=== PATIENT | female | born 1960 | race Caucasian/White ===

== ENCOUNTER 2022-09-13 12:18 | Emergency (ER) | payer OTHER, SELFPAY ==
[2022-09-13 12:44] VITALS: BP 118/77; PULSE 76; RESP 20; TEMP 36.2; O2SAT 98; BMI 34.4
--- NOTE | 2022-09-13 12:47 | ED_ITS ---
HPI - Skin/Abscess/Foreign Bdy General Chief complaint: Skin/Abscess/Foreign Body Stated complaint: Cyst on feet Time Seen by Provider: 09/13/22 13:00 Source: patient and family (Daughter) Mode of arrival: ambulatory Limitations: language barrier (English-speaking) History of Present Illness HPI narrative: 61yoF who is English-speaking presenting to the ER with her daughter at bedside with complaints of painful black corey that started on her right foot that is now spreading to her left foot. Reports that she never walks barefooted. Her daughter's concerns at is a possible parasite. Although apparently the patient was at a [facility] and they told her was most likely ?corns?. This is with the daughter reports. She denies any other symptoms complaints or concerns at this time. complaint: lesion Onset (ago): day(s) (3-4 days ago) Location: L foot and R foot Severity: mild Quality: aching and constant Pain Consistency: constant Relieving factors: none Exacerbating factors: palpation (and walking) Context: none Associated symptoms: denies other symptoms Treatments prior to arrival: none Related Data Previous Rx's Medication Instructions Recorded salicylic acid 40 % topical patch 1 appl topical Q48H corns on feet 09/13/22 (Closplint Remover) #36 ea Allergies Allergy/AdvReac Type Severity Reaction Status Date / Time aspirin Allergy Difficulty Verified 09/13/22 12:47 Breathing Penicillins Allergy Difficulty Verified 09/13/22 12:47 Breathing Review of Systems Review of Systems: Constitutional : No Weight loss, No Fever, No Chills, No Night Sweats, No Fatigue, No Malaise ENT/Mouth : No Hearing loss, No Ear Pain, No Nasal Congestion, No Sinus Pain, No Hoarseness, No sore throat, No Rhinorrhea, No Swallowing Difficulty Eyes: No Eye Pain, No Swelling, No Redness, No Foreign Body, No Discharge, No Vision Changes Cardiovascular : No Chest Pain, No SOB, No Dyspnea on Exertion, No Orthopnea, No Edema, No Palpitations Respiratory : No Cough, No Sputum, No Wheezing, No Smoke Exposure, No Dyspnea Gastrointestinal : No Nausea, No Vomiting, No Diarrhea, No Constipation, No abdominal Pain, No Hematochezia, No Melena Genitourinary : no irregular bleeding, No Dysuria, No Urinary Frequency, No Hematuria, No Urinary Incontinence, No Urgency, No Flank Pain, No Urinary Flow Changes, No Hesitancy Musculoskeletal : No joint pain, No Myalgias, No Joint Swelling Skin : + Skin Lesions, No rash Neuro : No Weakness, No Numbness, No Paresthesias, No Loss of Consciousness, No Dizziness, No Headache Psych : No Anxiety/Panic, No Depression, No SI/HI/AH/VH, No Social Issues, Heme/Lymph: No Bruising, No Bleeding,No Lymphadenopathy Endocrine : No Polyuria, No Polydipsia, No Temperature Intolerance Yes all other systems are reviewed and are negative [facility] Past Medical History Attestation statement: The following information was validated with the patient. Source: old records reviewed, obtained from family and nursing notes reviewed Social History Social History Advance Directives: No Advance Directives Information Provided: Yes Physical Exam Vital Signs: Vital Signs: Last Vital Signs Temp 97.1 F 09/13/22 12:44 Pulse 76 09/13/22 12:44 Resp 20 09/13/22 12:44 BP 118/77 09/13/22 12:44 Pulse Ox 98 09/13/22 12:44 O2 Del Method 09/13/22 12:44 BMI result Body Mass Index 34.4 vital signs have been reviewed as normal and appeared to be correct. Blood pressure normal Heart rate normal. Respiration rate normal. Temperature normal. Oxygen saturation normal. Appearance: Alert. Oriented X3. No acute distress. Head: Normal external exam. Normocephalic. Atraumatic. Eyes: PERRLA. EOMI. Conjunctiva and sclera normal. Eyelids normal. ENT: Pharynx normal. Uvula midline. Moist mucous membranes. Neck: Normal inspection. Neck supple. FROM. CVS: Normal heart rate and rhythm. Respiratory: No respiratory distress. Painless inspiration. Skin: Skin warm and dry. Normal skin color. Normal skin turgor. Patient noted to have approximately 2-3 small painful black dots to bilateral soles of the feet consistent with a possible corn. Not consistent with foreign body or cellulitis no streaking is noted purulent drainage. No addition rashes/lesions/lacerations noted. Extremities: No lower extremity edema. No calf tenderness is noted. Extremities exhibit normal range of motion. Extremities nontender. Neuro: Oriented X 3. No motor deficit. No sensory deficit. Reflexes normal. Normal steady gait. No focal neuro deficits noted. Vascular: + radial pulses/+ 2 distal pedal pulses/+2 dorsalis pedis b/l. Normal cap refill. No cyanosis noted to upper extremity nails and lower extremity toes nails. Course Course Course Narrative: [id number] 61yoF who is English-speaking presenting to the ER with her daughter at bedside with complaints of painful black corey that started on her right foot that is now spreading to her left foot. Reports that she never walks barefooted. Her daughter's concerns at is a possible parasite. Although apparently the patient was at a [facility] and they told her was most likely ?corns?. This is with the daughter reports. She denies any other symptoms complaints or concerns at this time. On exam patient most likely corns. No signs of infection. Therefore at this time will DC home with corn patches and referral to podiatry with instructions return if any new or worsening symptoms. Patient with daughter at bedside understand agree this plan. Medical Decision Making Independent Historian Clinical information obtained from an independent historian. History obtained from or confirmed by: Other (Daughter at bedside) Prescription Management I considered prescription management with: Other (Core Treatment and referral to smoke chaser) Discharge Plan Discharge Clinical Impression: Closplint of foot Patient Disposition: Home, Self-Care Prescriptions: New Closplint Remover 40 % adhesive patch,medicated 1 appl topical Q48H Qty: 36 0RF Referrals: Abdulaziz Mike [Physician] - 1 week Print Language: English
--- OUTSIDE RECORDS SUMMARY | 2022-09-13 13:09 | XMS_ITS | Continuity of Care Document ---
:1960 Author Organization [facility] Address [address] [place] [address]- Care Team Providers Name Role Phone Roberto Medina DO Primary Care Physician [facility] Date[facility]): 08/05/22 - 09/04/22 [facility] [address] [place] [id number] Allergies, Adverse Reactions, Alerts Substance Reaction Severity Status penicillin Active Child ASA Active Immunizations Given and Recorded Vaccine Date Status Refusal Reason SARS-CoV-2 (COVID-19) mRNA BNT-162b2 vac 07/02/21 Given influenza virus vaccine, inactivated 07/02/21 Given influenza virus vaccine, inactivated 05/21/19 Given influenza virus vaccine, inactivated 06/15/18 Given influenza virus vaccine, inactivated 06/13/16 Given SARS-CoV-2 (COVID-19) mRNA-1273 vaccine 12/07/20 Recorded SARS-CoV-2 (COVID-19) mRNA-1273 vaccine 11/09/20 Recorded pneumococcal 23-valent vaccine 05/21/19 Given tetanus/diphtheria/pertussis, acel(Tdap) 06/13/16 Given Medications albuterol CFC free 90 mcg/inh inhalation aerosol 2, puffs, Inhalation, 4 times a day, PRN, Nepalese, # 3 each, Refills 1, Tot. Refills 1, Maintenance,10/08/19 15:32:00 EDT, Route to Pharmacy Electronically, [id number], [facility], 156, cm, 07/14/19 13:44:00... Start Date: 10/08/19 Stop Date: 9/9/20 Status: Orderedarm sling, M75.4 arm sling, M75.4, See Instructions, # 1 each, Refills 0, Tot. Refills 0, Maintenance, arm sling M75.4, 06/11/19 9:07:54 EST, Compound Start Date: 06/11/19 Status: Orderedatorvastatin 40 mg oral tablet 1 tablet = 40 mg, By Mouth, Daily at bedtime, # 30 tablet, 11 Refills, Maintenance, 06/03/21 13:50:00 EST, Tablet, [facility] 156, cm, 03/05/21 8:16:00 EDT, Height Start Date: 06/03/21 Status: OrderedBED SUPPORT BAR BED SUPPORT BAR, See Instructions, # 1 each, Refills 0, Tot. Refills 0, Maintenance, DX: DIASTOLIC DYSFUNCTION,DIZZINESS, OBESITY, IMPAIRED MOBILITY RISK FOR FALLS 151.9 E66.9,Z79.81,Z74.09,R42 DURATION LIFETIME HT 156 CM WT 91.22 KG, 05/19/19 9:00... Start Date: 05/19/19 Status: OrderedCane See Instructions, # 1 each, Refills 0, Tot. Refills 0, Maintenance, DX BACK PAIN ,IMPAIRED MOBILITY M45.5 Z74.09 HT 156 CM WT 88.9 KG DURATION - LIFETIME, 08/09/20 16:47:00 EST, Supply Start Date: 08/09/20 Status: Orderedcelecoxib 100 mg oral capsule 1 capsule = 100 mg, By Mouth, 2 times a day, turkmen. Pt allergic to cox1 inhib, cox2 trial provided, # 20 capsule, 1 Refills, Maintenance, 02/01/21 15:46:00 EDT, Capsule, [facility] 156, cm, 02/01/21 15:03:00 EDT, Height Start Date: 02/01/21 Stop Date: 02/21/21 Status: Ordereddiclofenac 1% topical gel See Instructions, APLICAR A LA PIEL AL AREA AFECTADA 1-2 GRAMOS CUATRO VECES AL BELIA PARA DOLOR, # 100 Gm, 1 Refills, 10/11/21 9:31:00 EDT, [facility] 25, APLICAR A LA PIEL AL AREA AFECTADA 1-2 GRAMOS CUATRO VECES AL BELIA PARA DOLOR, 15... Start Date: 10/11/21 Status: CebggtkL-E-Nhj 4.9% oral suspension See Instructions, to be used for CT scan, # 1 each, 0 Refills, Maintenance, 04/15/22 18:22:00 EDT, Partial fill upon patient request if the prescription is for a schedule II opioid drug. Start Date: 04/15/22 Status: OrderedFreestyle Lite Lancets See Instructions, # 100 each, Refills 3, Tot. Refills 3, Maintenance, dx dm type 2 check bs 1 x per day e11.9, 12/05/20 16:57:00 EDT, Compound, 156, cm, 02/23/20 11:34:00 EDT, Height Start Date: 12/05/20 Status: OrderedFREESTYLE LITE METER Device FREESTYLE LITE METER Device, See Instructions, # 1 Unknown, 0 Refills, Maintenance, USAR VERONICA INDICADO PARA CHEQUEAR LA AZUCAR DE LA DANYELL CADA BELIA, 156, cm, 02/23/20 11:34:00 EDT, Height Start Date: 01/03/21 Status: OrderedFreestyle lite monitor Freestyle lite monitor, See Instructions, # 1 each, Refills 0, Tot. Refills 0, Maintenance, Check Blood sugar 1 per day. Type 2 diabetes (E11.9), 12/05/20 16:47:00 EDT, Compound, 156, cm, 02/23/20 11:34:00 EDT, Height Start Date: 12/05/20 Status: OrderedFreestyle Lite Test Strips See Instructions, # 100 each, Refills 3, Tot. Refills 3, Maintenance, dx dm type 2 check bs 1 x per day e11.9, 12/05/20 16:57:00 EDT, Compound, 156, cm, 02/23/20 11:34:00 EDT, Height Start Date: 12/05/20 Status: Orderedlevothyroxine 0.05 mg oral tablet = 50 mcg, By Mouth, Daily, # 90 each, 3 Refills, Maintenance, 02/08/22 19:49:00 EDT, Tablet, [facility], 156, cm, 12/31/21 13:56:00 EDT, Height Start Date: 02/08/22 Stop Date: 02/03/23 Status: Orderedlidocaine 5% topical ointment See Instructions, Topically 3 times a day for pain. Nepalese label please., # 50 Gm, 0 Refills, Maintenance, 02/01/21 15:46:00 EDT, [facility], Partial fill upon patient request if the prescription is for a schedule II opioid drug., To... Start Date: 02/01/21 Status: Orderedlisinopril 20 mg oral tablet See Instructions, AALIYAH 1 TABLETA POR LA BOCA CADA BELIA, # 30 tablet, Refills 5, Tot. Refills 5, 04/15/22 10:21:00 EDT, Instructions Replace Required Details, Route to Pharmacy Electronically, [facility], 156, cm, 03/27/22 15:07:00 EDT,... Start Date: 04/15/22 Status: OrderedMetFORMIN (Eqv-Glucophage XR) 500 mg oral tablet, extended release See Instructions, AALIYAH 2 TABLETAS POR LA BOCA DOS VECES AL BELIA., # 120 tablet, 5 Refills, Maintenance, 08/28/22 11:41:00 EST, [facility], cm, 04/15/22 17:44:00 EDT, Height Start Date: 08/28/22 Status: Orderednicotine 2 mg oral transmucosal lozenge 1 lozenge = 2 mg, By Mouth, Every 2 hours, # 81 lozenge, 0 Refills, Maintenance, 05/21/19 8:29:57 EDT, 1 lozenge By Mouth Every 2 hours Start Date: 05/21/19 Status: Orderedpair of atrex diabetic shoes pair of atrex diabetic shoes, See Instructions, # 2 each, Refills 0, Tot. Refills 0, Maintenance, E11.9, D11.40 duration: lifetime, 03/05/21 10:59:00 EDT, Supply Start Date: 03/05/21 Status: Orderedpantoprazole 40 mg oral delayed release tablet 1 tablet = 40 mg, By Mouth, Daily, # 30 tablet, 5 Refills, Maintenance, 03/20/22 13:46:00 EDT, EC Tablet, 156, cm, 03/20/22 13:10:00 EDT, Height Start Date: 03/20/22 Stop Date: 09/16/22 Status: OrderedPEG-3350 with Electrolytes (Eqv-NuLYTELY) oral powder for reconstitution See Instructions, Please follow instructions from GI; NOT the instructions in the package insert., #1 kit, 0 Refills, Maintenance, 03/27/22 15:25:00 EDT, [facility] Okay to substitutewith any gallon bowel prep., Please follow instru... Start Date: 03/27/22 Status: Orderedplastazote shoe inserts plastazote shoe inserts, See Instructions, # 2 each, Refills 0, Tot. Refills 0, Maintenance, Dx codes E11.9, E11.40 duration: lifetime, 03/05/21 12:12:00 EDT, Supply Start Date: 03/05/21 Status: OrderedReadi-Cat 2 oral suspension 450 mL = 9 Gm, By Mouth, 2 times a day, Please dispense two 450 mL bottles for a total dose that equals 900 mLs. Drink first bottle [address] and then drink second bottle [address] scan, #2 each, 0 Refills, Maintenance, 05/20/22 15:03:00... Start Date: 05/20/22 Status: OrderedsitaGLIPtin 50 mg oral tablet 1 tablet = 50 mg, By Mouth, Daily, turkmen, # 90 tablet, 1 Refills, Maintenance, 10/08/19 15:32:00 EDT, Tablet, [facility], 156, cm, 07/14/19 13:44:00 EST, Height Start Date: 10/08/19 Stop Date: 04/05/20 Status: OrderedtiZANidine 2 mg oral capsule 1 capsule = 2 mg, By Mouth, 3 times a day, PRN as needed for muscle spasm, # 9 capsule, 0 Refills, Maintenance, 10/11/21 9:30:00 EDT, Capsule, [facility], Partial fill upon patient request if the prescription is for a schedule II opioi... Start Date: 10/11/21 Stop Date: 10/14/21 Status: OrderedTUB BENCH TUB BENCH, See Instructions, # 1 each, Refills 0, Tot. Refills 0, Maintenance, DX: DIASTOLIC DYSFUNCTION,DIZZINESS, OBESITY, IMPAIRED MOBILITY RISK FOR FALLS 151.9 E66.9,Z79.81,Z74.09,R42 DURATION LIFETIME HT 156 CM WT 91.22 KG, 05/19/19 8:58:06 ED... Start Date: 05/19/19 Status: OrderedTylenol Extra Strength 500 mg oral tablet 2 tablet = 1,000 mg, By Mouth, 3 times a day, PRN Pain , Moderate, # 120 tablet, 1 Refills, Maintenance, 04/15/22 18:32:00 EDT, Tablet, [facility], Nepalese Label, 156, cm, 04/15/22 17:44:00 EDT, Height Start Date: 04/15/22 Status: Ordered Problem List Condition Confirmation Course Effective Dates Status Health I nformant Status Diabetes mellitus Confirmed Active Diastolic dysfunction Confirmed Active HLD (hyperlipidemia) Confirmed Active HTN (hypertension) Confirmed Active Hypothyroidism Confirmed Active Obese class II Confirmed Active Obesity Confirmed Active *Kourtney Pinzon, Confirmed Active [employer], [facility] [phone] Tobacco dependence Confirmed Active Social History Social History Type Response Smoking Status Current every day smoker; Ty pe: Cigarettes entered on: 07/04/15 Sex Female Patient Care team information Care Team PersonnelName: Roberto Medina DO Position: S Resident Member Role: PCP Address: Address: [address] [place] [address] [place] [address]- Care Team Related PersonsName: KISHAN JARAMILLO Address: [place] [address]
--- OUTSIDE RECORDS SUMMARY | 2022-09-13 13:09 | XMS_ITS | Continuity of Care Document ---
:1960 Author Organization [address] [address]- Care Team Providers Name Role Phone Roberto Medina DO Primary Care Physician [facility] Date[facility]s): 11/21/21 - 12/21/[address] Attending Physician: AdmVineet mendes Admitting Physician: AdmtrVineet Referring Physician: Admtr, Ar8 Allergies, Adverse Reactions, Alerts Substance Reaction Severity [...] puffs, Inhalation, 4 times a day, PRN, Gambian, # 3 each, Refills 1, Tot. Refills 1, Maintenance,10/08/19 15:32:00 EDT, Route to Pharmacy Electronically, [id number], [facility], 156, , 07/14/19 13:44:00... Start Date: 10/08/19 Stop Date: 04/05/20 Status: Orderedarm sling, M75.4 arm sling, M75.4, See Instructions, # 1 each, Refills 0, Tot. Refills 0, Maintenance, arm sling M75.4, 06/11/19 9:07:54 EST, Compound Start Date: 06/11/19 Status: Orderedatorvastatin 40 mg oral tablet 1 tablet = 40 mg, By Mouth, Daily at bedtime, # 30 tablet, 11 Refills, Maintenance, 06/03/21 13:50:00 EST, Tablet, [facility] 156, cm, 03/05/21 8:16:00 EDT, Height Start [...] mg, By Mouth, 2 times a day, senegalese. Pt allergic to cox1 inhib, cox2 trial provided, # 20 capsule, 1 Refills, Maintenance, 02/01/21 15:46:00 EDT, Capsule, [facility] 156, cm, 02/01/21 15:03:00 EDT, Height Start Date: 02/01/21 Stop Date: 02/21/21 Status: Ordereddiclofenac 1% topical gel See Instructions, APLICAR A LA PIEL AL AREA AFECTADA 1-2 GRAMOS CUATRO VECES AL BELIA PARA DOLOR, # 100 Gm, 1 Refills, 10/11/21 9:31:00 EDT, [facility] 25, APLICAR A LA PIEL AL AREA AFECTADA 1-2 GRAMOS CUATRO VECES AL BELIA PARA DOLOR, 15... Start Date: 10/11/21 Status: OrderedFreestyle Lite Lancets See Instructions, # [...] mcg, By Mouth, Daily, # 90 each, 4 Refills, Maintenance, 12/08/20 8:45:00 EDT, [facility], cm, 02/23/20 11:34:00 EDT, Height Start Date: 12/08/20 Stop Date: 03/03/22 Status: Orderedlidocaine 5% topical ointment See Instructions, Topically 3 times a day for pain. Gambian label please., # 50 Gm, 0 Refills, Maintenance, 02/01/21 15:46:00 EDT, [facility], Partial fill upon patient request if the prescription is for a schedule II opioid drug., To... Start Date: 02/01/21 Status: Orderedlisinopril 20 mg oral tablet See Instructions, AALIYAH 1 TABLETA POR LA BOCA CADA BELIA, # 30 tablet, Refills 5, Instructions ReplaceRequired Details, Route to Pharmacy Electronically, [facility], 156, cm, 10/11/21 9:38:00 EDT, Height Start Date: 10/23/21 Status: OrderedmetFORMIN 500 mg oral tablet, extended release 2 tablet = 1,000 mg, By Mouth, 2 times a day, # 120 tablet, 5 Refills, Maintenance, 11/01/21 10:04:00 EDT, [facility], 156, cm, 10/11/21 9:38:00 EDT, Height Start Date: 11/01/21 Status: Orderednicotine 2 mg oral transmucosal lozenge [...] 10:59:00 EDT, Supply Start Date: 03/05/21 Status: Orderedplastazote shoe inserts plastazote shoe inserts, See Instructions, # 2 each, Refills 0, Tot. Refills 0, Maintenance, Dx codes E11.9, E11.40 duration: lifetime, 03/05/21 12:12:00 EDT, Supply Start Date: 03/05/21 Status: OrderedsitaGLIPtin 50 mg oral tablet 1 tablet = 50 mg, By Mouth, Daily, senegalese, # 90 tablet, 1 Refills, Maintenance, 10/08/19 15:32:00 EDT, Tablet, [facility], cm, 07/14/19 13:44:00 EST, Height Start Date: 10/08/19 Stop Date: 04/05/20 Status: OrderedtiZANidine 2 mg oral capsule 1 capsule = 2 mg, By Mouth, 3 times a day, PRN as needed for muscle spasm, # 9 capsule, 0 Refills, Maintenance, 10/11/21 9:30:00 EDT, Capsule, [facility] Partial fill upon patient request if the [...] Moderate, # 120 tablet, 1 Refills, Maintenance, 12/05/20 11:43:00 EDT, Tablet, [facility] Gambian Label, 156, cm, 02/23/20 11:34:00 EDT, Height Start Date: 12/05/20 Status: Ordered Problem List Condition Effective Dates Status Health Status Informant Diabetes mellitus(Confirmed) Active Diastolic dysfunction(Confirmed) Active HLD (hyperlipidemia)(Confirmed) Active HTN (hypertension)(Confirmed) Active Hypothyroidism(Confirmed) Active Obese class II(Confirmed) Active Obesity(Confirmed) Active *Kourtney Pinzon, Cold Type Artist, Active [employer] [phone](Confirmed) Tobacco dependence(Confirmed) Active Social History Social History Type Response Smoking Status Current every day smoker; Ty pe: Cigarettes entered on: 07/04/15 Sex Female
--- OUTSIDE RECORDS SUMMARY | 2022-09-13 13:09 | XMS_ITS | Continuity of Care Document ---
:1960 Author Organization [facility] Address [address] [place] [id number]- Care Team Providers Name Role Phone Roberto Medina DO Primary Care Physician [facility]): [facility] - 07/31/22 [facility] [address] [place] [id number] Attending Physician: Not on Staff, Attending MD Allergies, Adverse Reactions, Alerts Substance Reaction Severity [...] puffs, Inhalation, 4 times a day, PRN, Kuwaiti, # 3 each, Refills 1, Tot. Refills 1, Maintenance,10/08/19 15:32:00 EDT, Route to Pharmacy Electronically, [id number], [facility], 156, cm, 07/14/19 13:44:00... Start Date: [...] 11 Refills, Maintenance, 06/03/21 13:50:00 EST, Tablet, [facility] 156, cm, 03/05/21 8:16:00 EDT, Height Start [...] mg, By Mouth, 2 times a day, greenlandic. Pt allergic to cox1 inhib, cox2 trial provided, # 20 capsule, 1 Refills, Maintenance, 02/01/21 15:46:00 EDT, Capsule, [facility] 156, cm, 02/01/21 15:03:00 EDT, Height Start Date: 02/01/21 Stop Date: 02/21/21 Status: Ordereddiclofenac 1% topical gel See Instructions, APLICAR A LA PIEL AL AREA AFECTADA 1-2 GRAMOS CUATRO VECES AL BELIA PARA DOLOR, # 100 Gm, 1 Refills, 10/11/21 9:31:00 EDT, [facility]., 25, APLICAR A LA PIEL AL AREA AFECTADA 1-2 GRAMOS CUATRO VECES AL BELIA PARA DOLOR, 15... Start Date: 10/11/21 Status: FojbsmpE-I-Eip 4.9% oral suspension See Instructions, to be [...] 3 Refills, Maintenance, 02/08/22 19:49:00 EDT, Tablet, [facility], 156, cm, 12/31/21 13:56:00 EDT, Height Start Date: 02/08/22 Stop Date: 02/03/23 Status: Orderedlidocaine 5% topical ointment See Instructions, Topically 3 times a day for pain. Kuwaiti label please., # 50 Gm, 0 Refills, Maintenance, 02/01/21 15:46:00 EDT, [facility], Partial fill upon patient request if the prescription is for a schedule II opioid drug., To... Start Date: 02/01/21 Status: Orderedlisinopril 20 mg oral tablet See Instructions, AALIYAH 1 TABLETA POR LA BOCA CADA BELIA, # 30 tablet, Refills 5, Tot. Refills 5, 04/15/22 10:21:00 EDT, Instructions Replace Required Details, Route to Pharmacy Electronically, [facility], 156, cm, 03/27/22 15:07:00 EDT,... Start Date: 04/15/22 Status: OrderedmetFORMIN 500 mg oral tablet, extended release 2 tablet = 1,000 mg, By Mouth, 2 times a day, # 120 tablet, 5 Refills, Maintenance, 11/01/21 10:04:00 EDT, [facility], 156, cm, 10/11/21 9:38:00 EDT, Height Start [...] kit, 0 Refills, Maintenance, 03/27/22 15:25:00 EDT, [facility]., Okay to substitutewith any gallon bowel prep., [...] tablet = 50 mg, By Mouth, Daily, greenlandic, # 90 tablet, 1 Refills, Maintenance, 10/08/19 15:32:00 EDT, Tablet, [facility], 156, cm, 07/14/19 13:44:00 EST, Height Start Date: 10/08/19 Stop Date: 04/05/20 Status: OrderedtiZANidine 2 mg oral capsule 1 capsule = 2 mg, By Mouth, 3 times a day, PRN as needed for muscle spasm, # 9 capsule, 0 Refills, Maintenance, 10/11/21 9:30:00 EDT, Capsule, [facility], Partial fill upon patient request if [...] 1 Refills, Maintenance, 04/15/22 18:32:00 EDT, Tablet, [facility], Kuwaiti Label, 156, cm, 04/15/22 17:44:00 EDT, Height Start Date: 04/15/22 Status: Ordered Problem List Condition Confirmation Course Effective Dates Status Health I nformant Status Diabetes mellitus Confirmed Active Diastolic dysfunction Confirmed Active HLD (hyperlipidemia) Confirmed Active HTN (hypertension) Confirmed Active Hypothyroidism Confirmed Active Obese class II Confirmed Active Obesity Confirmed Active *Kourtney Pinzon, Confirmed Active [employer], [facility] [phone] Tobacco dependence Confirmed Active Social History Social History Type Response Smoking Status Current every day smoker; Ty pe: Cigarettes entered on: 07/04/15 Sex Female Patient Care team information Care Team PersonnelName: Roberto Medina DO Position: S Resident Member Role: PCP Address: Address: [address] [place] [address] [place] [address]- Care Team Related PersonsName: KISHAN JARAMILLO Address: [place] [address]
--- OUTSIDE RECORDS SUMMARY | 2022-09-13 13:09 | XMS_ITS | Continuity of Care Document ---
:1960 Author Organization [facility] Address [address] [place] [address]- Care Team Providers Name Role Phone Jonathan Bermudez MD Primary Care Physician [facility] 08[facility]27/19 - 09/06/19 [facility] [address] [place] [address]- [facility] Attending Physician: Vineet Alexis Admitting Physician: Vineet Alexis Referring Physician: AdmtrVineet Allergies, Adverse Reactions, Alerts Substance Reaction Severity Status penicillin Active Child ASA Active Immunizations Given and Recorded Vaccine Date Status Refusal Reason pneumococcal 23-valent vaccine 05/21/19 Given influenza virus vaccine, inactivated 05/21/19 Given influenza virus vaccine, inactivated 06/15/18 Given influenza virus vaccine, inactivated 06/13/16 Given tetanus/diphtheria/pertussis, acel(Tdap) 06/13/16 Given Medications albuterol CFC free 90 mcg/inh inhalation aerosol 2, puffs, Inhalation, 4 times a day, PRN, Persian, # 1 each, Refills 2, Tot. Refills 2, Maintenance,05/21/19 8:31:13 EDT, Route to Pharmacy Electronically, [id number][facility] Start Date: 05/21/19 Status: Orderedarm sling, M75.4 arm sling, M75.4, See Instructions, # 1 each, Refills 0, Tot. Refills 0, Maintenance, arm sling M75.4, 06/11/19 9:07:54 EST, Compound Start Date: 06/11/19 Status: Orderedatorvastatin 40 mg oral tablet 1 tablet = 40 mg, By Mouth, Daily at bedtime, # 30 tablet, 11 Refills, Maintenance, 03/09/19 10:49:19 EDT, Tablet Start Date: 03/09/19 Stop Date: 03/03/20 Status: OrderedBED SUPPORT BAR BED SUPPORT BAR, See Instructions, # 1 each, Refills 0, Tot. Refills 0, Maintenance, DX: DIASTOLIC DYSFUNCTION,DIZZINESS, OBESITY, IMPAIRED MOBILITY RISK FOR FALLS 151.9 E66.9,Z79.81,Z74.09,R42 DURATION LIFETIME HT 156 CM WT 91.22 KG, 05/19/19 9:00... Start Date: 05/19/19 Status: OrderedFreestyle Lite Lancets See Instructions, # 50 each, Refills 11, Tot. Refills 11, Maintenance, dx dm type 2 check bs 1 x perday e11.9, 18 17:46:37 EST, Compound Start Date: 06/26/18 Status: OrderedFreestyle lite monitor Freestyle lite monitor, See Instructions, # 1 each, Refills 0, Tot. Refills 0, Maintenance, Check Blood sugar 1 per day. Type 2 diabetes (E11.9), 12/23/18 17:47:16 EDT, Compound Start Date: 12/23/18 Status: OrderedFreestyle Lite Test Strips See Instructions, # 50 each, Refills 11, Tot. Refills 11, Maintenance, dx dm type 2 check bs 1 x perday e11.9, 06/26/18 17:45:39 EST, Compound Start Date: 06/26/18 Status: Orderedlevothyroxine 0.05 mg oral tablet = 50 mcg, By Mouth, Daily, # 30 each, 11 Refills, Maintenance, 03/09/19 10:49:18 EDT, Tablet Start Date: 03/09/19 Stop Date: 03/03/20 Status: Orderedlisinopril 10 mg oral tablet 10 mg, By Mouth, Daily, # 30 tablet, Refills 11, Tot. Refills 11, Maintenance, 03/09/19 10:49:17 EDT, Route to Pharmacy Electronically, [id number], [facility] Start Date: 03/09/19 Stop Date: 03/03/20 Status: OrderedmetFORMIN 500 mg oral tablet, extended release 2 tablet = 1,000 mg, By Mouth, 2 times a day, # 120 tablet, 11 Refills, Maintenance, 03/09/19 10:49:19 EDT Start Date: 03/09/19 Status: Orderednicotine 2 mg oral transmucosal lozenge 1 lozenge = 2 mg, By Mouth, Every 2 hours, # 81 lozenge, 0 Refills, Maintenance, 05/21/19 8:29:57 EDT, 1 lozenge By Mouth Every 2 hours Start Date: 05/21/19 Status: OrderedsitaGLIPtin 50 mg oral tablet 1 tablet = 50 mg, By Mouth, Daily, albanian, # 90 tablet, 3 Refills, Maintenance, 05/21/19 8:23:51 EDT, Tablet Start Date: 05/21/19 Stop Date: 05/15/20 Status: OrderedTUB BENCH TUB BENCH, See Instructions, # 1 each, Refills 0, Tot. Refills 0, Maintenance, DX: DIASTOLIC DYSFUNCTION,DIZZINESS, OBESITY, IMPAIRED MOBILITY RISK FOR FALLS 151.9 E66.9,Z79.81,Z74.09,R42 DURATION LIFETIME HT 156 CM WT 91.22 KG, 05/19/19 8:58:06 ED... Start Date: 05/19/19 Status: OrderedTylenol Extra Strength 500 mg oral tablet 2 tablet = 1,000 mg, By Mouth, Every 6 hours, PRN for pain, Persian label, # 100 tablet, 1 Refills, Maintenance, 05/21/19 8:30:57 EDT, Tablet Start Date: 05/21/19 Status: Ordered Problem List Condition Effective Dates Status Health Status Informant Diabetes mellitus(Confirmed) Active Diastolic dysfunction(Confirmed) Active HLD (hyperlipidemia)(Confirmed) Active HTN (hypertension)(Confirmed) Active Hypothyroidism(Confirmed) Active Obesity(Confirmed) Active Tobacco dependence(Confirmed) Active Social History Social History Type Response Smoking Status Current every day smoker; Ty pe: Cigarettes entered on: 07/04/15 Sex Female
--- OUTSIDE RECORDS SUMMARY | 2022-09-13 13:09 | XMS_ITS | Continuity of Care Document ---
:[address] [facility] Address [address] [place] [address]- Care Team Providers Name Role Phone Jonathan Bermudez MD Primary Care Physician [facility] 10/12/19 - 10/19/19 [facility] [address] [place] [address]- [facility] Attending Physician: Ban Ferrera MD Admitting Physician: Joe CUBA, Zeke Jacob Allergies, Adverse Reactions, Alerts Substance Reaction Severity [...] puffs, Inhalation, 4 times a day, PRN, Guinean, # 3 each, Refills 1, Tot. Refills 1, Maintenance,10/08/19 15:32:00 EDT, Route to Pharmacy Electronically, [id number], [facility], 156, cm, 07/14/19 13:44:00... Start Date: 10/08/19 Stop Date: 04/05/20 Status: Orderedarm sling, M75.4 arm sling, M75.4, See Instructions, # 1 each, Refills 0, Tot. Refills 0, Maintenance, arm sling M75.4, 06/11/19 9:07:54 EST, Compound Start Date: 06/11/19 Status: Orderedatorvastatin 40 mg oral tablet 1 tablet = 40 mg, By Mouth, Daily at bedtime, # 90 tablet, 1 Refills, Maintenance, 10/08/19 15:32:00EDT, Tablet, [facility], 156, cm, 07/14/19 13:44:00 EST, Height Start Date: 10/08/19 Stop Date: 04/05/20 Status: OrderedBED SUPPORT BAR BED SUPPORT BAR, See Instructions, # 1 each, Refills 0, Tot. Refills 0, Maintenance, DX: DIASTOLIC DYSFUNCTION,DIZZINESS, OBESITY, IMPAIRED MOBILITY RISK FOR FALLS 151.9 E66.9,Z79.81,Z74.09,R42 DURATION LIFETIME HT 156 CM WT 91.22 KG, 05/19/19 9:00... Start Date: 05/19/19 Status: OrderedFreestyle Lite Lancets See Instructions, # 100 each, Refills 1, Tot. Refills 1, Maintenance, dx dm type 2 check bs 1 x per day e11.9, 10/08/19 15:35:00 EDT, Compound, 156, cm, 07/14/19 13:44:00 EST, Height Start Date: 10/08/19 Status: OrderedFreestyle lite monitor Freestyle lite monitor, See Instructions, # 1 each, Refills 0, Tot. Refills 0, Maintenance, Check Blood sugar 1 per day. Type 2 diabetes (E11.9), 12/23/18 17:47:16 EDT, Compound Start Date: 12/23/18 Status: OrderedFreestyle Lite Test Strips See Instructions, # 100 each, Refills 1, Tot. Refills 1, Maintenance, dx dm type 2 check bs 1 x per day e11.9, 10/08/19 15:35:00 EDT, Compound, 156, cm, 07/14/19 13:44:00 EST, Height Start Date: 10/08/19 Status: Orderedlevothyroxine 0.05 mg oral tablet = 50 mcg, By Mouth, Daily, # 90 each, 1 Refills, Maintenance, 10/08/19 15:32:00 EDT, Tablet, [facility], 156, cm, 07/14/19 13:44:00 EST, Height Start Date: 10/08/19 Stop Date: 04/05/20 Status: Orderedlisinopril 10 mg oral tablet 10 mg, By Mouth, Daily, # 90 each, Refills 1, Tot. Refills 1, Maintenance, 10/08/19 15:32:00 EDT, Route to Pharmacy Electronically, [facility], 156, cm, 07/14/19 13:44:00 EST, Height Start Date: 10/08/19 Stop Date: 04/05/20 Status: OrderedmetFORMIN 500 mg oral tablet, extended release 2 tablet = 1,000 mg, By Mouth, 2 times a day, # 120 tablet, 11 Refills, Maintenance, 10/08/19 15:32:00 EDT, [facility], 156, cm, 07/14/19 13:44:00 EST, Height Start Date: 10/08/19 Status: Orderednicotine 2 mg oral transmucosal lozenge 1 lozenge = 2 mg, By Mouth, Every 2 hours, # 81 lozenge, 0 Refills, Maintenance, 05/21/19 8:29:57 EDT, 1 lozenge By Mouth Every 2 hours Start Date: 05/21/19 Status: OrderedsitaGLIPtin 50 mg oral tablet 1 tablet = 50 mg, By Mouth, Daily, maltese, # 90 tablet, 1 Refills, Maintenance, 10/08/19 15:32:00 EDT, Tablet, [facility], 156, cm, 07/14/19 13:44:00 EST, Height Start Date: 10/08/19 Stop Date: 04/05/20 Status: OrderedTUB BENCH TUB BENCH, See Instructions, # 1 each, Refills 0, Tot. Refills 0, Maintenance, DX: DIASTOLIC DYSFUNCTION,DIZZINESS, OBESITY, IMPAIRED MOBILITY RISK FOR FALLS 151.9 E66.9,Z79.81,Z74.09,R42 DURATION LIFETIME HT 156 CM WT 91.22 KG, 05/19/19 8:58:06 ED... Start Date: 05/19/19 Status: OrderedTylenol Extra Strength 500 mg oral tablet 2 tablet = 1,000 mg, By Mouth, Every 6 hours, PRN for pain, Guinean label, # 100 tablet, 1 Refills, Maintenance, [...]
--- OUTSIDE RECORDS SUMMARY | 2022-09-13 13:09 | XMS_ITS | Continuity of Care Document ---
:1960 Author Organization [facility] Address [address] [place] [address]- Care Team Providers Name Role Phone Jonathan Bermudez MD Primary Care Physician [facility] 07/22/19 - 08/01/19 [facility] [address] [place] [address]- [facility] Attending Physician: Vineet Alexis Admitting Physician: [...] puffs, Inhalation, 4 times a day, PRN, Jamaican, # 1 each, Refills 2, Tot. Refills 2, Maintenance,05/21/19 8:31:13 EDT, Route to Pharmacy Electronically, [id number], [facility] Start Date: 05/21/19 Status: Orderedarm sling, [...] 03/09/19 10:49:17 EDT, Route to Pharmacy Electronically, [id number], [facility] Start Date: 03/09/19 Stop Date: 03/03/20 [...] tablet = 50 mg, By Mouth, Daily, bahraini, # 90 tablet, 3 Refills, Maintenance, 05/21/19 [...] Mouth, Every 6 hours, PRN for pain, Jamaican label, # 100 tablet, 1 Refills, Maintenance, [...]
--- OUTSIDE RECORDS SUMMARY | 2022-09-13 13:09 | XMS_ITS | Continuity of Care Document ---
:1960 Author Organization [facility] Address [address] [place] [address]- Care Team Providers Name Role Phone Roberto Medina DO Primary Care Physician [facility] 07/13/21 - 09/06/21 [facility] [address] [place] [address]- Attending Physician: Not on Staff, Attending MD [...] puffs, Inhalation, 4 times a day, PRN, Ukrainian, # 3 each, Refills 1, Tot. Refills 1, Maintenance,10/08/19 15:32:00 EDT, Route to Pharmacy Electronically, [id number], [facility], 156, cm, 07/14/19 13:44:00... Start Date: [...] 11 Refills, Maintenance, 06/03/21 13:50:00 EST, Tablet, [facility]., 156, cm, 03/05/21 8:16:00 EDT, Height [...] mg, By Mouth, 2 times a day, peruvian. Pt allergic to cox1 inhib, cox2 trial provided, # 20 capsule, 1 Refills, Maintenance, 02/01/21 15:46:00 EDT, Capsule, [facility] 156, cm, 02/01/21 15:03:00 EDT, Height Start Date: 02/01/21 Stop Date: 02/21/21 Status: Ordereddiclofenac 1% topical gel See Instructions, APLICAR A LA PIEL AL AREA AFECTADA 1-2 GRAMOS CUATRO VECES AL BELIA PARA DOLOR, # 100 Gm, 1 Refills, 06/11/21 16:19:00 EST, [facility] 25, APLICAR A LA PIEL AL AREA AFECTADA 1-2 GRAMOS CUATRO VECES AL BELIA PARA DOLOR, 1... Start Date: 06/11/21 Status: OrderedFreestyle Lite Lancets See Instructions, # [...] 4 Refills, Maintenance, 12/08/20 8:45:00 EDT, Tablet, [facility] 156, cm, 02/23/20 11:34:00 EDT, Height Start Date: 12/08/20 Stop Date: 03/03/22 Status: Orderedlidocaine 5% topical ointment See Instructions, Topically 3 times a day for pain. Ukrainian label please., # 50 Gm, 0 Refills, Maintenance, 02/01/21 15:46:00 EDT, [facility], Partial fill upon patient request if the prescription is for a schedule II opioid drug., To... Start Date: 02/01/21 Status: Orderedlisinopril 20 mg oral tablet See Instructions, AALIYAH 1 TABLETA POR LA BOCA CADA BELIA, # 30 tablet, Refills 5, Maintenance, Instructions Replace Required Details, Route to Pharmacy Electronically, [facility], 156, cm, 03/05/21 8:16:00 EDT, Height Start Date: 03/08/21 Status: OrderedmetFORMIN 500 mg oral tablet, extended release 2 tablet = 1,000 mg, By Mouth, 2 times a day, # 120 tablet, 5 Refills, Maintenance, 03/06/21 9:03:00EDT, [facility], 156, cm, 03/05/21 8:16:00 EDT, Height Start Date: 03/06/21 Status: Orderednicotine 2 mg oral transmucosal lozenge [...] tablet = 50 mg, By Mouth, Daily, peruvian, # 90 tablet, 1 Refills, Maintenance, 10/08/19 15:32:00 EDT, Tablet, [facility] 156, cm, 07/14/19 13:44:00 EST, [...] 1 Refills, Maintenance, 12/05/20 11:43:00 EDT, Tablet, [facility] Ukrainian Label, 156, cm, 02/23/20 11:34:00 EDT, Height Start Date: 12/05/20 Status: Ordered Problem List Condition Effective Dates Status Health Status Informant Diabetes mellitus(Confirmed) Active Diastolic dysfunction(Confirmed) Active HLD (hyperlipidemia)(Confirmed) Active HTN (hypertension)(Confirmed) Active Hypothyroidism(Confirmed) Active Obese class II(Confirmed) Active Obesity(Confirmed) Active *Kourtney Pinzon, Church Supervisor, Active [facility] [phone](Confirmed) Tobacco dependence(Confirmed) Active Social History Social History Type Response Smoking Status Current every day smoker; Ty pe: Cigarettes entered on: 07/04/15 Sex Female
--- OUTSIDE RECORDS SUMMARY | 2022-09-13 13:09 | XMS_ITS | Continuity of Care Document ---
:1960 Author Organization [facility] Address [address] [place] [address]- Care Team Providers Name Role Phone Roberto Medina DO Primary Care Physician [facility] 03[facility]27/20 - 04/26/20 [facility] [address] [place] [address]- [place] Allergies, Adverse Reactions, Alerts Substance Reaction Severity [...] Maintenance,10/08/19 15:32:00 EDT, Route to Pharmacy Electronically, [id number], [facility], cm, 07/14/19 13:44:00... Start Date: 10/08/19 Stop Date: 04/05/20 Status: Orderedarm sling, M75.4 arm sling, M75.4, See Instructions, # 1 each, Refills 0, Tot. Refills 0, Maintenance, arm sling M75.4, 06/11/19 9:07:54 EST, Compound Start Date: 06/11/19 Status: Orderedatorvastatin 40 mg oral tablet 1 tablet = 40 mg, By Mouth, Daily at bedtime, # 90 tablet, 1 Refills, Maintenance, 11/18/19 15:46:00EDT, Tablet, [facility]., 156, cm, 07/14/19 13:44:00 EST, Height Start Date: 11/18/19 Stop Date: 05/16/20 Status: OrderedBED SUPPORT BAR BED SUPPORT BAR, See Instructions, # 1 each, Refills 0, Tot. Refills 0, Maintenance, DX: DIASTOLIC DYSFUNCTION,DIZZINESS, OBESITY, IMPAIRED MOBILITY RISK FOR FALLS 151.9 E66.9,Z79.81,Z74.09,R42 DURATION LIFETIME HT 156 CM WT 91.22 KG, 05/19/19 9:00... Start Date: 05/19/19 Status: Ordereddiclofenac 1% topical gel 1 application, Topically, 4 times a day, # 100 Gm, 0 Refills, Maintenance, 02/23/20 11:43:00 EDT, Gel, [facility], 156, cm, 02/23/20 11:34:00 EDT, Height Start Date: 02/23/20 Status: OrderedFreestyle Lite Lancets See Instructions, # [...] Daily, # 90 each, 1 Refills, Maintenance, 11/18/19 15:46:00 EDT, Tablet, [facility], 156, cm, 07/14/19 13:44:00 EST, Height Start Date: 11/18/19 Stop Date: 05/16/20 Status: Orderedlisinopril 20 mg oral tablet 20 mg, 1, tablet, By Mouth, Daily, # 90 tablet, Refills 0, Tot. Refills 0, Maintenance, 02/23/20 12:10:00 EDT, Route to Pharmacy Electronically, [facility], 156, cm, 02/23/20 11:34:00 EDT, Height Start Date: 02/23/20 Status: OrderedmetFORMIN 500 mg oral tablet, extended release 2 tablet = 1,000 mg, By Mouth, 2 times a day, # 120 tablet, 11 Refills, Maintenance, 10/08/19 15:32:00 EDT, [facility], 156, cm, 07/14/19 13:44:00 EST, Height Start Date: 10/08/19 Status: Orderednicotine 2 mg oral transmucosal lozenge 1 lozenge = 2 mg, By Mouth, Every 2 hours, # 81 lozenge, 0 Refills, Maintenance, 05/21/19 8:29:57 EDT, 1 lozenge By Mouth Every 2 hours Start Date: 05/21/19 Status: OrderedsitaGLIPtin 50 mg oral tablet 1 tablet = 50 mg, By Mouth, Daily, anguillan, # 90 tablet, 1 Refills, Maintenance, 10/08/19 15:32:00 EDT, Tablet, [facility], 156, cm, 07/14/19 13:44:00 EST, Height Start [...] PRN Pain , Moderate, # 120 tablet, 0 Refills, Maintenance, 02/23/20 12:11:00 EDT, Tablet, [facility] 156, cm, 02/23/20 11:34:00 EDT, Height Start Date: 02/23/20 Status: Ordered Problem List Condition Effective Dates Status Health Status Informant Diabetes mellitus(Confirmed) Active Diastolic dysfunction(Confirmed) Active HLD (hyperlipidemia)(Confirmed) Active HTN (hypertension)(Confirmed) Active Hypothyroidism(Confirmed) Active Obesity(Confirmed) Active Tobacco dependence(Confirmed) Active Social History Social History Type Response Smoking Status Current every day smoker; Ty pe: Cigarettes entered on: 07/04/15 Sex Female
--- OUTSIDE RECORDS SUMMARY | 2022-09-13 13:09 | XMS_ITS | Continuity of Care Document ---
:[address] [facility] Address [address] [place] [address]- Care Team Providers Name Role Phone Roberto Medina DO Primary Care Physician [facility] Date[facility]s): 09[facility]/20 - 10/04/20 [facility] [address] [place] [id number]- Attending Physician: Vineet Alexis Admitting Physician: Vineet [...] puffs, Inhalation, 4 times a day, PRN, Saudi Arabian, # 3 each, Refills 1, Tot. Refills 1, Maintenance,10/08/19 15:32:00 EDT, Route to Pharmacy Electronically, [id number], [facility], cm, 07/14/19 13:44:00... Start Date: [...] tablet, 1 Refills, Maintenance, 11/18/19 15:46:00EDT, Tablet, [facility] 156, cm, 07/14/19 13:44:00 EST, Height Start [...] 16:47:00 EST, Supply Start Date: 08/09/20 Status: Ordereddiclofenac 1% topical gel 1 application, Topically, 4 times a day, for pain. Saudi Arabian label please. home delivery please, # 100Gm, 1 Refills, Maintenance, 09/04/20 14:48:00 EST, Gel, [facility] Saudi Arabian label, 156, cm, 02/23/20 11:34:00 EDT, Height Start Date: 09/04/20 Status: OrderedFreestyle Lite Lancets See Instructions, # [...] 1 Refills, Maintenance, 11/18/19 15:46:00 EDT, Tablet, [facility], 156, cm, 07/14/19 13:44:00 EST, Height Start Date: 11/18/19 Stop Date: 05/16/20 Status: Orderedlisinopril 20 mg oral tablet 20 mg, 1, tablet, By Mouth, Daily, tajik label please, # 90 tablet, Refills 1, Tot. Refills 1, Maintenance, 06/21/20 11:14:00 EST, Route to Pharmacy Electronically, [facility], Partial fill upon patient request, 156, cm, 02/23/20 11:... Start Date: 06/21/20 Stop Date: 12/18/20 Status: OrderedmetFORMIN 500 mg oral tablet, extended release 2 tablet = 1,000 mg, By Mouth, 2 times a day, # 120 tablet, 5 Refills, Maintenance, 06/06/20 19:38:00 EST, [facility], 156, cm, 02/23/20 11:34:00 EDT, Height Start Date: 06/06/20 Status: Orderednicotine 2 mg oral transmucosal lozenge 1 lozenge = 2 mg, By Mouth, Every 2 hours, # 81 lozenge, 0 Refills, Maintenance, 05/21/19 8:29:57 EDT, 1 lozenge By Mouth Every 2 hours Start Date: 05/21/19 Status: OrderedsitaGLIPtin 50 mg oral tablet 1 tablet = 50 mg, By Mouth, Daily, tajik, # 90 tablet, 1 Refills, Maintenance, 10/08/19 15:32:00 EDT, [facility]t, [facility], cm, 07/14/19 13:44:00 EST, Height [...] Moderate, # 120 tablet, 0 Refills, Maintenance, 09/04/20 14:48:00 EST, Tablet, [facility] [place] Label, 156, cm, 02/23/20 11:34:00 EDT, Height Start Date: 09/04/20 Status: Ordered Problem List Condition Effective Dates Status Health Status Informant Diabetes mellitus(Confirmed) Active Diastolic dysfunction(Confirmed) Active HLD (hyperlipidemia)(Confirmed) Active HTN (hypertension)(Confirmed) Active Hypothyroidism(Confirmed) Active Obesity(Confirmed) Active *Kourtney Pinzon, Litigation Docket Manager, Active ICP [phone](Confirmed) Tobacco dependence(Confirmed) Active Social History Social History Type Response Smoking Status Current every day smoker; Ty pe: Cigarettes entered on: 07/04/15 Sex Female
--- OUTSIDE RECORDS SUMMARY | 2022-09-13 13:09 | XMS_ITS | Continuity of Care Document ---
:1960 Author Organization [facility] Address [address] [place] [phone]- Care Team Providers Name Role Phone Roberto Medina DO Primary Care Physician [facility] Date[facility]s): 03/23/20 - 04/22/20 [facility] [address] [place] [phone]- [facility] Attending Physician: Vineet Alexis Admitting Physician: Vineet [...] puffs, Inhalation, 4 times a day, PRN, Yakut, # 3 each, Refills 1, Tot. Refills 1, Maintenance,10/08/19 15:32:00 EDT, Route to Pharmacy Electronically, [id number], [facility], 156, cm, 07/14/19 13:44:00... Start [...] tablet, 1 Refills, Maintenance, 11/18/19 15:46:00EDT, Tablet, [facility] 156, cm, 07/14/19 13:44:00 EST, Height [...] 0 Refills, Maintenance, 02/23/20 11:43:00 EDT, Gel, [facility] 156, cm, 02/23/20 11:34:00 EDT, Height Start [...] 1 Refills, Maintenance, 11/18/19 15:46:00 EDT, Tablet, [facility], 156, cm, 07/14/19 13:44:00 EST, Height Start Date: 11/18/19 Stop Date: 05/16/20 Status: Orderedlisinopril 20 mg oral tablet 20 mg, 1, tablet, By Mouth, Daily, # 90 tablet, Refills 0, Tot. Refills 0, Maintenance, 02/23/20 12:10:00 EDT, Route to Pharmacy Electronically, [facility], 156, cm, 02/23/20 11:34:00 EDT, Height Start Date: 02/23/20 Status: OrderedmetFORMIN 500 mg oral tablet, extended release 2 tablet = 1,000 mg, By Mouth, 2 times a day, # 120 tablet, 11 Refills, Maintenance, 10/08/19 15:32:00 EDT, [facility] 156, cm, 07/14/19 13:44:00 EST, Height Start [...] 1 Refills, Maintenance, 10/08/19 15:32:00 EDT, Tablet, [facility], 156, cm, 07/14/19 13:44:00 EST, Height Start [...] 0 Refills, Maintenance, 02/23/20 12:11:00 EDT, Tablet, [facility], 156, cm, 02/23/20 11:34:00 EDT, Height Start [...]
--- OUTSIDE RECORDS SUMMARY | 2022-09-13 13:09 | XMS_ITS | Continuity of Care Document ---
:1960 Author Organization [facility] Address [address] [place] [phone]- Care Team Providers Name Role Phone Roberto Medina DO Primary Care Physician [facility] Date(s): 03/20/22 - 04/19/22 [facility] [address] [place] [id number]- Allergies, Adverse Reactions, Alerts Substance Reaction Severity [...] puffs, Inhalation, 4 times a day, PRN, Libyan, # 3 each, Refills 1, Tot. Refills 1, Maintenance,10/08/19 15:32:00 EDT, Route to Pharmacy Electronically, [id number], [facility], 156, , 07/14/19 13:44:00... Start [...] 11 Refills, Maintenance, 06/03/21 13:50:00 EST, Tablet, [facility] 156, cm, 03/05/21 8:16:00 EDT, Height [...] mg, By Mouth, 2 times a day, cambodian. Pt allergic to cox1 inhib, cox2 trial provided, # 20 capsule, 1 Refills, Maintenance, 02/01/21 15:46:00 EDT, Capsule, [facility]., 156, cm, 02/01/21 15:03:00 EDT, Height Start Date: 02/01/21 Stop Date: 02/21/21 Status: Ordereddiclofenac 1% topical gel See Instructions, APLICAR A LA PIEL AL AREA AFECTADA 1-2 GRAMOS CUATRO VECES AL BELIA PARA DOLOR, # 100 Gm, 1 Refills, 10/11/21 9:31:00 EDT, [facility] 25, APLICAR A LA PIEL AL AREA AFECTADA 1-2 GRAMOS CUATRO VECES AL BELIA PARA DOLOR, 15... Start Date: 10/11/21 Status: BaqhpvsX-G-Sby 4.9% oral suspension See Instructions, to be [...] 3 Refills, Maintenance, 02/08/22 19:49:00 EDT, Tablet, [facility], 156, cm, 12/31/21 13:56:00 EDT, Height Start Date: 02/08/22 Stop Date: 02/03/23 Status: Orderedlidocaine 5% topical ointment See Instructions, Topically 3 times a day for pain. Libyan label please., # 50 Gm, 0 Refills, Maintenance, 02/01/21 15:46:00 EDT, [facility], Partial fill upon patient request if the prescription is for a schedule II opioid drug., To... Start Date: 02/01/21 Status: Orderedlisinopril 20 mg oral tablet See Instructions, AALIYAH 1 TABLETA POR LA BOCA CADA BELIA, # 30 tablet, Refills 5, Tot. Refills 5, 04/15/22 10:21:00 EDT, Instructions Replace Required Details, Route to Pharmacy Electronically, [facility], 156, cm, 03/27/22 15:07:00 EDT,... Start Date: 04/15/22 Status: OrderedmetFORMIN 500 mg oral tablet, extended release 2 tablet = 1,000 mg, By Mouth, 2 times a day, # 120 tablet, 5 Refills, Maintenance, 11/01/21 10:04:00 EDT, [facility], 156, cm, 10/11/21 9:38:00 EDT, Height [...] kit, 0 Refills, Maintenance, 03/27/22 15:25:00 EDT, [facility]., Okay to substitutewith any gallon bowel prep., Please follow instru... Start Date: 03/27/22 Status: Orderedplastazote shoe inserts plastazote shoe inserts, See Instructions, # 2 each, Refills 0, Tot. Refills 0, Maintenance, Dx codes E11.9, E11.40 duration: lifetime, 03/05/21 12:12:00 EDT, Supply Start Date: 03/05/21 Status: OrderedsitaGLIPtin 50 mg oral tablet 1 tablet = 50 mg, By Mouth, Daily, cambodian, # 90 tablet, 1 Refills, Maintenance, 10/08/19 15:32:00 EDT, Tablet, [facility], 156, cm, 07/14/19 13:44:00 EST, Height Start Date: 10/08/19 Stop Date: 04/05/20 Status: OrderedtiZANidine 2 mg oral capsule 1 capsule = 2 mg, By Mouth, 3 times a day, PRN as needed for muscle spasm, # 9 capsule, 0 Refills, Maintenance, 10/11/21 9:30:00 EDT, Capsule, [facility], Partial fill upon patient request if [...] 1 Refills, Maintenance, 04/15/22 18:32:00 EDT, Tablet, [facility], Libyan Label, 156, cm, 04/15/22 17:44:00 EDT, Height Start Date: 04/15/22 Status: Ordered Problem List Condition Effective Dates Status Health Status Informant Diabetes mellitus(Confirmed) Active Diastolic dysfunction(Confirmed) Active HLD (hyperlipidemia)(Confirmed) Active HTN (hypertension)(Confirmed) Active Hypothyroidism(Confirmed) Active Obese class II(Confirmed) Active Obesity(Confirmed) Active *Kourtney Pinzon, Diagnostic Medical Sonographer, Active ICP [phone](Confirmed) Tobacco dependence(Confirmed) Active Social History Social History Type Response Smoking Status Current every day smoker; Ty pe: Cigarettes entered on: 07/04/15 Sex Female Care Team PersonnelName: Roberto Medina DO Address: [address] [place] [address]
--- OUTSIDE RECORDS SUMMARY | 2022-09-13 13:10 | XMS_ITS | Continuity of Care Document ---
:1960 Author Organization [facility] Address [address] [place] [phone]- Care Team Providers Name Role Phone Roberto Medina DO Primary Care Physician Encounter [facility] Date(s): 11/15/21 - 12/21/[address] Attending Physician: Phi Meadows MD Admitting Physician: Phi Meadows MD Referring Physician: Piter HARRISON, Lydia Paz Allergies, Adverse Reactions, Alerts Substance Reaction Severity [...] puffs, Inhalation, 4 times a day, PRN, [place] Citizen, # 3 each, Refills 1, Tot. Refills 1, Maintenance,10/08/19 15:32:00 EDT, Route to Pharmacy Electronically, [id number], [facility], 156, , 07/14/19 13:44:00... Start Date: 10/08/19 [...] 11 Refills, Maintenance, 06/03/21 13:50:00 EST, Tablet, [facility] 156, cm, 03/05/21 8:16:00 EDT, Height Start [...] mg, By Mouth, 2 times a day, azerbaijani. Pt allergic to cox1 inhib, cox2 trial provided, # 20 capsule, 1 Refills, Maintenance, 02/01/21 15:46:00 EDT, Capsule, [facility] 156, cm, 02/01/21 15:03:00 EDT, Height Start Date: 02/01/21 Stop Date: 02/21/21 Status: Ordereddiclofenac 1% topical gel See Instructions, APLICAR A LA PIEL AL AREA AFECTADA 1-2 GRAMOS CUATRO VECES AL BELIA PARA DOLOR, # 100 Gm, 1 Refills, 10/11/21 9:31:00 EDT, [facility] 25, APLICAR A LA PIEL [...] 4 Refills, Maintenance, 12/08/20 8:45:00 EDT, Tablet[facility] 156, cm, 02/23/20 11:34:00 EDT, Height Start Date: 12/08/20 Stop Date: 03/03/22 Status: Orderedlidocaine 5% topical ointment See Instructions, Topically 3 times a day for pain. [place] Citizen label please., # 50 Gm, 0 Refills, Maintenance, 02/01/21 15:46:00 EDT, [facility], Partial fill upon patient request if the prescription is for a schedule II opioid drug., To... Start Date: 02/01/21 Status: Orderedlisinopril 20 mg oral tablet See Instructions, AALIYAH 1 TABLETA POR LA BOCA CADA BELIA, # 30 tablet, Refills 5, Instructions ReplaceRequired Details, Route to Pharmacy Electronically, [facility], 156, cm, 10/11/21 9:38:00 EDT, Height Start Date: 10/23/21 Status: OrderedmetFORMIN 500 mg oral tablet, extended release 2 tablet = 1,000 mg, By Mouth, 2 times a day, # 120 tablet, 5 Refills, Maintenance, 11/01/21 10:04:00 EDT, [facility], 156, cm, 10/11/21 9:38:00 EDT, Height [...] tablet = 50 mg, By Mouth, Daily, azerbaijani, # 90 tablet, 1 Refills, Maintenance, 10/08/19 15:32:00 EDT, Tablet, [facility], cm, 07/14/19 13:44:00 EST, Height Start Date: 10/08/19 Stop Date: 04/05/20 Status: OrderedtiZANidine 2 mg oral capsule 1 capsule = 2 mg, By Mouth, 3 times a day, PRN as needed for muscle spasm, # 9 capsule, 0 Refills, Maintenance, 10/11/21 9:30:00 EDT, Capsule, [facility] Partial fill upon patient request if [...] 1 Refills, Maintenance, 12/05/20 11:43:00 EDT, Tablet, [facility] Vatican Citizen Label, 156, cm, 02/23/20 11:34:00 EDT, Height Start Date: 12/05/20 Status: Ordered Problem List Condition Effective Dates Status Health Status Informant Diabetes mellitus(Confirmed) Active Diastolic dysfunction(Confirmed) Active HLD (hyperlipidemia)(Confirmed) Active HTN (hypertension)(Confirmed) Active Hypothyroidism(Confirmed) Active Obese class II(Confirmed) Active Obesity(Confirmed) Active *Kourtney Pinzon, Cardiopulmonary Physical Therapist, Active ICP [phone](Confirmed) Tobacco dependence(Confirmed) Active Social History Social History Type Response Smoking Status Current every day smoker; Ty pe: Cigarettes entered on: 07/04/15 Sex Female
--- OUTSIDE RECORDS SUMMARY | 2022-09-13 13:10 | XMS_ITS | Continuity of Care Document ---
:1960 Author Organization [facility] Address [address] [place] [phone]- Care Team Providers Name Role Phone Roberto Medina DO Primary Care Physician Encounter [facility] Date(s): 03/27/22 - 04/26/22 [facility] [address] [place] [address]- Attending Physician: Vineet Alexis Admitting Physician: AdmtrVineet Referring Physician: Admtr, Ar8 [...] puffs, Inhalation, 4 times a day, PRN, Moroccan, # 3 each, Refills 1, Tot. Refills 1, Maintenance,10/08/19 15:32:00 EDT, Route to Pharmacy Electronically, [id number], [facility], 156, , 07/14/19 [...] 11 Refills, Maintenance, 06/03/21 13:50:00 EST, Tablet, [facility] 156, cm, 03/05/21 8:16:00 EDT, Height [...] mg, By Mouth, 2 times a day, croatian. Pt allergic to cox1 inhib, cox2 trial provided, # 20 capsule, 1 Refills, Maintenance, 02/01/21 15:46:00 EDT, Capsule, [facility]., 156, cm, 02/01/21 15:03:00 EDT, Height Start Date: 02/01/21 Stop Date: 02/21/21 Status: Ordereddiclofenac 1% topical gel See Instructions, APLICAR A LA PIEL AL AREA AFECTADA 1-2 GRAMOS CUATRO VECES AL BELIA PARA DOLOR, # 100 Gm, 1 Refills, 10/11/21 9:31:00 EDT, [facility]., 25, APLICAR A LA PIEL AL AREA AFECTADA 1-2 GRAMOS CUATRO VECES AL BELIA PARA DOLOR, 15... Start Date: 10/11/21 Status: NprrfxiT-V-Wjr 4.9% oral suspension See Instructions, to be [...] 3 Refills, Maintenance, 02/08/22 19:49:00 EDT, Tablet, [facility], 156, cm, 12/31/21 13:56:00 EDT, Height Start Date: 02/08/22 Stop Date: 02/03/23 Status: Orderedlidocaine 5% topical ointment See Instructions, Topically 3 times a day for pain. Moroccan label please., # 50 Gm, 0 Refills, Maintenance, 02/01/21 15:46:00 EDT, [facility], Partial fill upon patient request if the prescription is for a schedule II opioid drug., To... Start Date: 02/01/21 Status: Orderedlisinopril 20 mg oral tablet See Instructions, AALIYAH 1 TABLETA POR LA BOCA CADA BELIA, # 30 tablet, Refills 5, Tot. Refills 5, 04/15/22 10:21:00 EDT, Instructions Replace Required Details, Route to Pharmacy Electronically, [facility], 156, cm, 03/27/22 15:07:00 EDT,... Start Date: 04/15/22 Status: OrderedmetFORMIN 500 mg oral tablet, extended release 2 tablet = 1,000 mg, By Mouth, 2 times a day, # 120 tablet, 5 Refills, Maintenance, 11/01/21 10:04:00 EDT, [facility], 156, cm, 10/11/21 9:38:00 EDT, Height [...] kit, 0 Refills, Maintenance, 03/27/22 15:25:00 EDT, [facility]., Okay to substitutewith any gallon bowel prep., Please follow instru... Start Date: 03/27/22 Status: Orderedplastazote shoe inserts plastazote shoe inserts, See Instructions, # 2 each, Refills 0, Tot. Refills 0, Maintenance, Dx codes E11.9, E11.40 duration: lifetime, 03/05/21 12:12:00 EDT, Supply Start Date: 03/05/21 Status: OrderedsitaGLIPtin 50 mg oral tablet 1 tablet = 50 mg, By Mouth, Daily, croatian, # 90 tablet, 1 Refills, Maintenance, 10/08/19 15:32:00 EDT, Tablet, [facility], 156, cm, 07/14/19 13:44:00 EST, Height Start Date: 10/08/19 Stop Date: 04/05/20 Status: OrderedtiZANidine 2 mg oral capsule 1 capsule = 2 mg, By Mouth, 3 times a day, PRN as needed for muscle spasm, # 9 capsule, 0 Refills, Maintenance, 10/11/21 9:30:00 EDT, Capsule, [facility], Partial fill upon patient request if the prescription is for a schedule II opioi... Start Date: 10/11/21 Stop Date: 10/14/21 Status: OrderedTUB BENCH TUB BENCH, See Instructions, # 1 each, Refills 0, Tot. Refills 0, Maintenance, DX: DIASTOLIC DYSFUNCTION,DIZZINESS, OBESITY, IMPAIRED MOBILITY RISK FOR FALLS 151.9 E66.9,Z79.81,Z74.09,R42 DURATION LIFETIME HT 156 CM WT 91.22 KG, 05/19/19 8:58:06 ED... Start Date: 10/23/19 Status: OrderedTylenol Extra Strength 500 mg oral tablet 2 tablet = 1,000 mg, By Mouth, 3 times a day, PRN Pain , Moderate, # 120 tablet, 1 Refills, Maintenance, 04/15/22 18:32:00 EDT, Tablet, [facility], Moroccan Label, 156, cm, 04/15/22 17:44:00 EDT, Height Start Date: 04/15/22 Status: Ordered Problem List Condition Confirmation Course Effective Dates Status Health I nformant Status Diabetes mellitus Confirmed Active Diastolic dysfunction Confirmed Active HLD (hyperlipidemia) Confirmed Active HTN (hypertension) Confirmed Active Hypothyroidism Confirmed Active Obese class II Confirmed Active Obesity Confirmed Active *Kourtney 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 [place], [place] [address]
--- OUTSIDE RECORDS SUMMARY | 2022-09-13 13:10 | XMS_ITS | Continuity of Care Document ---
:1960 Author Organization [facility] Address [address] [place] [phone]- Care Team Providers Name Role Phone Roberto Medina DO Primary Care Physician [facility] Date[facility]s): 12/31/21 - 01/30/22 [facility] [address] [place] [address] Attending Physician: Vineet Alexis Admitting Physician: AdmtrVineet Referring Physician: Admtr, ArJorge Allergies, Adverse Reactions, Alerts Substance Reaction Severity [...] puffs, Inhalation, 4 times a day, PRN, Sami, # 3 each, Refills 1, Tot. Refills 1, Maintenance,10/08/19 15:32:00 EDT, Route to Pharmacy Electronically, [id number], [facility], 156, cm, 07/14/19 13:44:00... Start Date: [...] 11 Refills, Maintenance, 06/03/21 13:50:00 EST, Tablet, [facility] 156, cm, 03/05/21 8:16:00 EDT, Height [...] mg, By Mouth, 2 times a day, lithuanian. Pt allergic to cox1 inhib, cox2 trial provided, # 20 capsule, 1 Refills, Maintenance, 02/01/21 15:46:00 EDT, Capsule, [facility] 156, cm, 02/01/21 15:03:00 EDT, [...] 4 Refills, Maintenance, 12/08/20 8:45:00 EDT, [facility], cm, 02/23/20 11:34:00 EDT, Height Start Date: 12/08/20 Stop Date: 03/03/22 Status: Orderedlidocaine 5% topical ointment See Instructions, Topically 3 times a day for pain. Sami label please., # 50 Gm, 0 Refills, Maintenance, 02/01/21 15:46:00 EDT, [facility], Partial fill upon patient request if the prescription is for a schedule II opioid drug., To... Start Date: 02/01/21 Status: Orderedlisinopril 20 mg oral tablet See Instructions, AALIYAH 1 TABLETA POR LA BOCA CADA BELIA, # 30 tablet, Refills 5, Instructions ReplaceRequired Details, Route to Pharmacy Electronically, [facility], 156, cm, 10/11/21 9:38:00 EDT, Height Start Date: 10/23/21 Status: OrderedmetFORMIN 500 mg oral tablet, extended release 2 tablet = 1,000 mg, By Mouth, 2 times a day, # 120 tablet, 5 Refills, Maintenance, 11/01/21 10:04:00 EDT, [facility], 156, cm, 10/11/21 9:38:00 EDT, Height [...] tablet = 50 mg, By Mouth, Daily, lithuanian, # 90 tablet, 1 Refills, Maintenance, 10/08/19 15:32:00 EDT, Tablet, [facility], cm, 07/14/19 13:44:00 EST, Height Start Date: 10/08/19 Stop Date: 04/05/20 Status: OrderedtiZANidine 2 mg oral capsule 1 capsule = 2 mg, By Mouth, 3 times a day, PRN as needed for muscle spasm, # 9 capsule, 0 Refills, Maintenance, 10/11/21 9:30:00 EDT, Capsule, [facility] Partial fill upon patient request if the [...] 1 Refills, Maintenance, 12/05/20 11:43:00 EDT, Tablet, [facility] Sami Label, 156, cm, 02/23/20 11:34:00 EDT, Height Start Date: 12/05/20 Status: Ordered Problem List Condition Effective Dates Status Health Status Informant Diabetes mellitus(Confirmed) Active Diastolic dysfunction(Confirmed) Active HLD (hyperlipidemia)(Confirmed) Active HTN (hypertension)(Confirmed) Active Hypothyroidism(Confirmed) Active Obese class II(Confirmed) Active Obesity(Confirmed) Active *Kourtney Pinzon, Bread 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
--- OUTSIDE RECORDS SUMMARY | 2022-09-13 13:10 | XMS_ITS | Continuity of Care Document ---
:1960 Author Organization [facility] Address [address] [place] [address]- Care Team Providers Name Role Phone Roberto Medina DO Primary Care Physician [facility] Date[facility]): 03/[facility]/20 - 04/22/20 [facility] [address] [place] [address]- [place] Allergies, Adverse Reactions, Alerts Substance Reaction [...] puffs, Inhalation, 4 times a day, PRN, Lebanese, # 3 each, Refills 1, Tot. Refills 1, Maintenance,10/08/19 15:32:00 EDT, Route to Pharmacy Electronically, [id number], [facility], 156, cm, 07/14/19 [...] tablet, 1 Refills, Maintenance, 11/18/19 15:46:00EDT, Tablet, [facility] 156, cm, 07/14/19 13:44:00 EST, Height [...] 0 Refills, Maintenance, 02/23/20 11:43:00 EDT, Gel, [facility] 156, cm, 02/23/20 11:34:00 EDT, Height [...] 1 Refills, Maintenance, 11/18/19 15:46:00 EDT, Tablet, [facility], 156, cm, 07/14/19 13:44:00 EST, Height Start Date: 11/18/19 Stop Date: 05/16/20 Status: Orderedlisinopril 20 mg oral tablet 20 mg, 1, tablet, By Mouth, Daily, # 90 tablet, Refills 0, Tot. Refills 0, Maintenance, 02/23/20 12:10:00 EDT, Route to Pharmacy Electronically, [facility], 156, cm, 02/23/20 11:34:00 EDT, Height Start Date: 02/23/20 Status: OrderedmetFORMIN 500 mg oral tablet, extended release 2 tablet = 1,000 mg, By Mouth, 2 times a day, # 120 tablet, 11 Refills, Maintenance, 10/08/19 15:32:00 EDT, [facility], 156, cm, 07/14/19 13:44:00 EST, Height Start Date: 10/08/19 Status: Orderednicotine 2 mg oral transmucosal lozenge 1 lozenge = 2 mg, By Mouth, Every 2 hours, # 81 lozenge, 0 Refills, Maintenance, 05/21/19 8:29:57 EDT, 1 lozenge By Mouth Every 2 hours Start Date: 05/21/19 Status: OrderedsitaGLIPtin 50 mg oral tablet 1 tablet = 50 mg, By Mouth, Daily, kyrgyz, # 90 tablet, 1 Refills, Maintenance, 10/08/19 15:32:00 EDT, Tablet, [facility], 156, cm, 07/14/19 13:44:00 EST, Height [...] 0 Refills, Maintenance, 02/23/20 12:11:00 EDT, Tablet, [facility] 156, cm, 02/23/20 11:34:00 EDT, Height Start [...]
--- OUTSIDE RECORDS SUMMARY | 2022-09-13 13:10 | XMS_ITS | Continuity of Care Document ---
:1960 Author Organization [facility] Address [address] [place] [address]- Care Team Providers Name Role Phone Roberto Medina DO Primary Care Physician [facility]s): 02/23/20 - 03/24/20 [facility] [address] [place] [address]- [place] Allergies, Adverse Reactions, Alerts Substance Reaction [...] puffs, Inhalation, 4 times a day, PRN, Pitcair[place] Islander, # 3 each, Refills 1, Tot. Refills 1, Maintenance,10/08/19 15:32:00 EDT, Route to Pharmacy Electronically, [id number], [facility], [facility], 07/14/19 13:44:00... Start Date: [...] tablet, 1 Refills, Maintenance, 11/18/19 15:46:00EDT, Tablet, [facility]., 156, cm, 07/14/19 13:44:00 EST, Height Start [...] 0 Refills, Maintenance, 02/23/20 11:43:00 EDT, Gel, [facility], 156, cm, 02/23/20 11:34:00 EDT, Height [...] 1 Refills, Maintenance, 11/18/19 15:46:00 EDT, Tablet, [facility], 156, cm, 07/14/19 13:44:00 EST, Height Start Date: 11/18/19 Stop Date: 05/16/20 Status: Orderedlisinopril 20 mg oral tablet 20 mg, 1, tablet, By Mouth, Daily, # 90 tablet, Refills 0, Tot. Refills 0, Maintenance, 02/23/20 12:10:00 EDT, Route to Pharmacy Electronically, [facility], 156, cm, 02/23/20 11:34:00 EDT, Height Start Date: 02/23/20 Status: OrderedMacrobid macrocrystals-monohydrate 100 mg oral capsule 1 capsule = 100 mg, By Mouth, 2 times a day, for 7 days, # 14 capsule, 0 Refills, Acute 03/31/20 12:33:00 EDT, 03/24/20 12:33:00 EDT, Capsule, [facility], 156, cm, 02/23/20 11:34:00 EDT, Height Start Date: 03/24/20 Stop Date: 03/31/20 Status: OrderedmetFORMIN 500 mg oral tablet, extended release 2 tablet = 1,000 mg, By Mouth, 2 times a day, # 120 tablet, 11 Refills, Maintenance, 10/08/19 15:32:00 EDT, [facility], 156, cm, 07/14/19 13:44:00 EST, Height Start Date: 10/08/19 Status: Orderednicotine 2 mg oral transmucosal lozenge 1 lozenge = 2 mg, By Mouth, Every 2 hours, # 81 lozenge, 0 Refills, Maintenance, 05/21/19 8:29:57 EDT, 1 lozenge By Mouth Every 2 hours Start Date: 05/21/19 Status: OrderedsitaGLIPtin 50 mg oral tablet 1 tablet = 50 mg, By Mouth, Daily, armenian, # 90 tablet, 1 Refills, Maintenance, 10/08/19 15:32:00 EDT, Tablet, [facility] 156, cm, 07/14/19 13:44:00 EST, [...] 0 Refills, Maintenance, 02/23/20 12:11:00 EDT, [facility]t, [facility], cm, 02/23/20 11:34:00 EDT, Height [...]
--- OUTSIDE RECORDS SUMMARY | 2022-09-13 13:10 | XMS_ITS | Continuity of Care Document ---
:[address] [facility] Address [address] [place] [address]- Care Team Providers Name Role Phone Roberto Medina DO Primary Care Physician [facility]): 05/15/22 - 06/14/22 [facility] [address] [place], [place] [address] Allergies, Adverse Reactions, Alerts Substance Reaction Severity [...] puffs, Inhalation, 4 times a day, PRN, Bermudian, # 3 each, Refills 1, Tot. Refills 1, Maintenance,10/08/19 15:32:00 EDT, Route to Pharmacy Electronically, [id number], [facility], 156, cm, 07/14/19 13:44:00... Start Date: [...] 11 Refills, Maintenance, 06/03/21 13:50:00 EST, Tablet, [facility] 156, cm, 03/05/21 8:16:00 EDT, Height Start [...] mg, By Mouth, 2 times a day, yoruba. Pt allergic to cox1 inhib, cox2 trial provided, # 20 capsule, 1 Refills, Maintenance, 02/01/21 15:46:00 EDT, Capsule, [facility] 156, cm, 02/01/21 15:03:00 EDT, Height Start Date: 02/01/21 Stop Date: 02/21/21 Status: Ordereddiclofenac 1% topical gel See Instructions, APLICAR A LA PIEL AL AREA AFECTADA 1-2 GRAMOS CUATRO VECES AL BELIA PARA DOLOR, # 100 Gm, 1 Refills, 10/11/21 9:31:00 EDT, [facility]., 25, APLICAR A LA PIEL AL AREA AFECTADA 1-2 GRAMOS CUATRO VECES AL BELIA PARA DOLOR, 15... Start Date: 10/11/21 Status: DifvowtR-L-Dhs 4.9% oral suspension See Instructions, to be [...] 3 Refills, Maintenance, 02/08/22 19:49:00 EDT, Tablet, [facility], 156, cm, 12/31/21 13:56:00 EDT, Height Start Date: 02/08/22 Stop Date: 02/03/23 Status: Orderedlidocaine 5% topical ointment See Instructions, Topically 3 times a day for pain. Bermudian label please., # 50 Gm, 0 Refills, Maintenance, 02/01/21 15:46:00 EDT, [facility], Partial fill upon patient request if the prescription is for a schedule II opioid drug., To... Start Date: 02/01/21 Status: Orderedlisinopril 20 mg oral tablet See Instructions, AALIYAH 1 TABLETA POR LA BOCA CADA BELIA, # 30 tablet, Refills 5, Tot. Refills 5, 04/15/22 10:21:00 EDT, Instructions Replace Required Details, Route to Pharmacy Electronically, [facility], 156, cm, 03/27/22 15:07:00 EDT,... Start Date: 04/15/22 Status: OrderedmetFORMIN 500 mg oral tablet, extended release 2 tablet = 1,000 mg, By Mouth, 2 times a day, # 120 tablet, 5 Refills, Maintenance, 11/01/21 10:04:00 EDT, [facility], 156, cm, 10/11/21 9:38:00 EDT, [...] kit, 0 Refills, Maintenance, 03/27/22 15:25:00 EDT, [facility]., Okay to substitutewith any gallon bowel prep., [...] tablet = 50 mg, By Mouth, Daily, yoruba, # 90 tablet, 1 Refills, Maintenance, 10/08/19 15:32:00 EDT, Tablet, [facility] 156, cm, 07/14/19 13:44:00 EST, Height Start Date: 10/08/19 Stop Date: 04/05/20 Status: OrderedtiZANidine 2 mg oral capsule 1 capsule = 2 mg, By Mouth, 3 times a day, PRN as needed for muscle spasm, # 9 capsule, 0 Refills, Maintenance, 10/11/21 9:30:00 EDT, Capsule, [facility], Partial fill upon patient request [...] 1 Refills, Maintenance, 04/15/22 18:32:00 EDT, Tablet, [facility], Bermudian Label, 156, cm, 04/15/22 17:44:00 EDT, Height Start Date: 04/15/22 Status: Ordered Problem List Condition Confirmation Course Effective Dates Status Health I nformant Status Diabetes mellitus Confirmed Active Diastolic dysfunction Confirmed Active HLD (hyperlipidemia) Confirmed Active HTN (hypertension) Confirmed Active Hypothyroidism Confirmed Active Obese class II Confirmed Active Obesity Confirmed Active *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
--- OUTSIDE RECORDS SUMMARY | 2022-09-13 13:10 | XMS_ITS | Continuity of Care Document ---
:1960 Author Organization [facility] Address [address] [place] [address]- Care Team Providers Name Role Phone Aidan CUBA, Jonathan Primary Care Physician Encounter [facility] Date(s): 08/24/19 - 09/03/19 [place] [address]- [facility] Attending Physician: Vineet Alexis Admitting Physician: AdmVineet mendes Referring Physician: AdmtrVineet Allergies, Adverse Reactions, Alerts [...] puffs, Inhalation, 4 times a day, PRN, Ethiopian, # 1 each, Refills 2, Tot. Refills 2, Maintenance,05/21/19 8:31:13 EDT, Route to Pharmacy Electronically, [id number], [facility] Start Date: 05/21/19 Status: Orderedarm sling, M75.4 [...] 03/09/19 10:49:17 EDT, Route to Pharmacy Electronically, [id number], [facility] Start Date: 03/09/19 Stop Date: 03/03/20 [...] tablet = 50 mg, By Mouth, Daily, irish, # 90 tablet, 3 Refills, Maintenance, 05/21/19 [...] Mouth, Every 6 hours, PRN for pain, Ethiopian label, # 100 tablet, 1 Refills, Maintenance, [...]
--- OUTSIDE RECORDS SUMMARY | 2022-09-13 13:10 | XMS_ITS | Continuity of Care Document ---
:1960 Author Organization [facility] Address [address] [place] [address]- Care Team Providers Name Role Phone Jonathan Bermudez MD Primary Care Physician [facility]s): 08[facility]04/19 - 09/26/19 [facility] [address] [place] [address]- [facility] Attending Physician: Zeke Diaz MD Admitting Physician: Zeke Diaz MD Allergies, Adverse Reactions, Alerts Substance Reaction [...] puffs, Inhalation, 4 times a day, PRN, Guyanese, # 1 each, Refills 2, Tot. Refills 2, Maintenance,05/21/19 8:31:13 EDT, Route to Pharmacy Electronically, [id number], [facility] Start Date: 05/21/19 Status: Orderedarm sling, [...] check bs 1 x perday e11.9, 06/26/18 17:46:37 EST, Compound Start Date: 06/26/18 Status: [...] 03/09/19 10:49:17 EDT, Route to Pharmacy Electronically, [id number], [facility] Start Date: 03/09/19 Stop Date: 03/03/20 [...] tablet = 50 mg, By Mouth, Daily, yakut, # 90 tablet, 3 Refills, Maintenance, 05/21/19 [...] Mouth, Every 6 hours, PRN for pain, Guyanese label, # 100 tablet, 1 Refills, Maintenance, [...]
--- OUTSIDE RECORDS SUMMARY | 2022-09-13 13:10 | XMS_ITS | Continuity of Care Document ---
:1960 Author Organization [facility] Address [address] [place] [address]- Care Team Providers Name Role Phone Roberto Medina DO Primary Care Physician [facility] 10/09/21 - 11/08/21 [facility] [address] [place], [place] [address] Allergies, Adverse Reactions, Alerts Substance Reaction [...] puffs, Inhalation, 4 times a day, PRN, Central African, # 3 each, Refills 1, Tot. Refills 1, Maintenance,10/08/19 15:32:00 EDT, Route to Pharmacy Electronically, [id number], [facility], 156, cm, 07/14/19 13:44:00... Start [...] 11 Refills, Maintenance, 06/03/21 13:50:00 EST, Tablet, [facility] 156, cm, 03/05/21 8:16:00 EDT, Height [...] mg, By Mouth, 2 times a day, zimbabwean. Pt allergic to cox1 inhib, cox2 trial provided, # 20 capsule, 1 Refills, Maintenance, 02/01/21 15:46:00 EDT, Capsule, [facility] 156, cm, 02/01/21 15:03:00 EDT, Height Start Date: 02/01/21 Stop Date: 02/21/21 Status: Ordereddiclofenac 1% topical gel See Instructions, APLICAR A LA PIEL AL AREA AFECTADA 1-2 GRAMOS CUATRO VECES AL BELIA PARA DOLOR, # 100 Gm, 1 Refills, 10/11/21 9:31:00 EDT, [facility]., 25, APLICAR A LA PIEL AL [...] 4 Refills, Maintenance, 12/08/20 8:45:00 EDT, Tablet, [facility], cm, 02/23/20 11:34:00 EDT, Height Start Date: 12/08/20 Stop Date: 03/03/22 Status: Orderedlidocaine 5% topical ointment See Instructions, Topically 3 times a day for pain. Central African label please., # 50 Gm, 0 Refills, Maintenance, 02/01/21 15:46:00 EDT, [facility]., Partial fill upon patient request if the prescription is for a schedule II opioid drug., To... Start Date: 02/01/21 Status: Orderedlisinopril 20 mg oral tablet See Instructions, AALIYAH 1 TABLETA POR LA BOCA CADA BELIA, # 30 tablet, Refills 5, Instructions ReplaceRequired Details, Route to Pharmacy Electronically, [facility], 156, cm, 10/11/21 9:38:00 EDT, Height Start Date: 10/23/21 Status: OrderedmetFORMIN 500 mg oral tablet, extended release 2 tablet = 1,000 mg, By Mouth, 2 times a day, # 120 tablet, 5 Refills, Maintenance, 11/01/21 10:04:00 EDT, [facility], 156, cm, 10/11/21 9:38:00 EDT, Height [...] tablet = 50 mg, By Mouth, Daily, zimbabwean, # 90 tablet, 1 Refills, Maintenance, 10/08/19 15:32:00 EDT, Tablet, [facility], 156, cm, 07/14/19 13:44:00 EST, Height Start Date: 10/08/19 Stop Date: 04/05/20 Status: OrderedtiZANidine 2 mg oral capsule 1 capsule = 2 mg, By Mouth, 3 times a day, PRN as needed for muscle spasm, # 9 capsule, 0 Refills, Maintenance, 10/11/21 9:30:00 EDT, Capsule, [facility]., Partial fill upon patient request if the [...] 1 Refills, Maintenance, 12/05/20 11:43:00 EDT, Tablet, [facility], Central African Label, 156, cm, 02/23/20 11:34:00 EDT, Height Start Date: 12/05/20 Status: Ordered Problem List Condition Effective Dates Status Health Status Informant Diabetes mellitus(Confirmed) Active Diastolic dysfunction(Confirmed) Active HLD (hyperlipidemia)(Confirmed) Active HTN (hypertension)(Confirmed) Active Hypothyroidism(Confirmed) Active Obese class II(Confirmed) Active Obesity(Confirmed) Active *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
--- OUTSIDE RECORDS SUMMARY | 2022-09-13 13:10 | XMS_ITS | Continuity of Care Document ---
:[address] [facility] Address [address] [place] [address]- Care Team Providers Name Role Phone Roberto Medina DO Primary Care Physician [facility] 08/02/22 - 09/01/22 [facility] [address] [place] [id number] Attending Physician: Vineet Alexis Admitting Physician: [...] puffs, Inhalation, 4 times a day, PRN, Bruneian, # 3 each, Refills 1, Tot. Refills 1, Maintenance,10/08/19 15:32:00 EDT, Route to Pharmacy Electronically, [id number], [facility], 156, cm, 07/14/19 13:44:00... Start Date: [...] 11 Refills, Maintenance, 06/03/21 13:50:00 EST, Tablet, [facility] 156, cm, 03/05/21 8:16:00 EDT, Height [...] mg, By Mouth, 2 times a day, jamaican. Pt allergic to cox1 inhib, cox2 trial provided, # 20 capsule, 1 Refills, Maintenance, 02/01/21 15:46:00 EDT, Capsule, [facility] 156, cm, 02/01/21 15:03:00 EDT, Height Start Date: 02/01/21 Stop Date: 02/21/21 Status: Ordereddiclofenac 1% topical gel See Instructions, APLICAR A LA PIEL AL AREA AFECTADA 1-2 GRAMOS CUATRO VECES AL BELIA PARA DOLOR, # 100 Gm, 1 Refills, 10/11/21 9:31:00 EDT, [facility], APLICAR A LA PIEL AL AREA AFECTADA 1-2 GRAMOS CUATRO VECES AL BELIA PARA DOLOR, 15... Start Date: 10/11/21 Status: GbmespwH-W-Eva 4.9% oral suspension See Instructions, to be [...] 3 Refills, Maintenance, 02/08/22 19:49:00 EDT, Tablet, [facility], 156, cm, 12/31/21 13:56:00 EDT, Height Start Date: 02/08/22 Stop Date: 02/03/23 Status: Orderedlidocaine 5% topical ointment See Instructions, Topically 3 times a day for pain. Bruneian label please., # 50 Gm, 0 Refills, Maintenance, 02/01/21 15:46:00 EDT, [facility], Partial fill upon patient request if the prescription is for a schedule II opioid drug., To... Start Date: 02/01/21 Status: Orderedlisinopril 20 mg oral tablet See Instructions, AALIYAH 1 TABLETA POR LA BOCA CADA BELIA, # 30 tablet, Refills 5, Tot. Refills 5, 04/15/22 10:21:00 EDT, Instructions Replace Required Details, Route to Pharmacy Electronically, [facility], 156, cm, 03/27/22 15:07:00 EDT,... Start [...] kit, 0 Refills, Maintenance, 03/27/22 15:25:00 EDT, [facility]., Okay to substitutewith any gallon bowel [...] tablet = 50 mg, By Mouth, Daily, jamaican, # 90 tablet, 1 Refills, Maintenance, 10/08/19 15:32:00 EDT, Tablet, [facility] 156, cm, 07/14/19 13:44:00 EST, Height Start Date: 10/08/19 Stop Date: 04/05/20 Status: OrderedtiZANidine 2 mg oral capsule 1 capsule = 2 mg, By Mouth, 3 times a day, PRN as needed for muscle spasm, # 9 capsule, 0 Refills, Maintenance, 10/11/21 9:30:00 EDT, Capsule, [facility]., Partial fill upon patient request if [...] 1 Refills, Maintenance, 04/15/22 18:32:00 EDT, Tablet, [facility], Bruneian Label, 156, cm, 04/15/22 17:44:00 EDT, Height Start Date: 04/15/22 Status: Ordered Problem List Condition Confirmation Course Effective Dates Status Health I nformant Status Diabetes mellitus Confirmed Active Diastolic dysfunction Confirmed Active HLD (hyperlipidemia) Confirmed Active HTN (hypertension) Confirmed Active Hypothyroidism Confirmed Active Obese class II Confirmed Active Obesity Confirmed Active *Kourtney Pinzon, 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, [facility] [phone] Tobacco dependence Confirmed Active Social History Social History Type Response Smoking Status Current every day smoker; Ty pe: Cigarettes entered on: 07/04/15 Sex Female EKG study Event Display: EKG Authored Date: Note Event Display: Non Lab Results Authored Date: Patient Care team information Care Team PersonnelName: Roberto Medina DO Position: [facility] Resident Member Role: PCP Address: Address: [address] [place] [address] [place] [address]- Care Team Related PersonsName: KISHAN JARAMILLO Address: [place] [address]
--- OUTSIDE RECORDS SUMMARY | 2022-09-13 13:10 | XMS_ITS | Continuity of Care Document ---
:1960 Author Organization [facility] Address [address] [place] [phone]- Care Team Providers Name Role Phone Roberto Medina DO Primary Care Physician En[place] [facility] [place]s): 07/04/22 - 09/01/22 [facility] [address] [place] [id number] Attending Physician: Zeke Diaz MD Admitting Physician: Zeke Diaz MD Referring Physician: Roberto Medina DO Allergies, Adverse Reactions, Alerts Substance Reaction Severity [...] puffs, Inhalation, 4 times a day, PRN, Citizen Of [place], # 3 each, Refills 1, Tot. Refills 1, Maintenance,10/08/19 15:32:00 EDT, Route to Pharmacy Electronically, [id number], [facility], 156, cm, 07/14/19 13:44:00... [...] 11 Refills, Maintenance, 06/03/21 13:50:00 EST, Tablet, [facility] 156, cm, 03/05/21 8:16:00 EDT, Height [...] mg, By Mouth, 2 times a day, marshallese. Pt allergic to cox1 inhib, cox2 trial provided, # 20 capsule, 1 Refills, Maintenance, 02/01/21 15:46:00 EDT, Capsule, [facility] 156, cm, 02/01/21 15:03:00 EDT, Height Start Date: 02/01/21 Stop Date: 02/21/21 Status: Ordereddiclofenac 1% topical gel See Instructions, APLICAR A LA PIEL AL AREA AFECTADA 1-2 GRAMOS CUATRO VECES AL BELIA PARA DOLOR, # 100 Gm, 1 Refills, 10/11/21 9:31:00 EDT, [facility], 25, APLICAR A LA PIEL AL AREA AFECTADA 1-2 GRAMOS CUATRO VECES AL BELIA PARA DOLOR, 15... Start Date: 10/11/21 Status: BacnmmmX-Q-Ora 4.9% oral suspension See Instructions, to be [...] 3 Refills, Maintenance, 02/08/22 19:49:00 EDT, Tablet, [facility], 156, cm, 12/31/21 13:56:00 EDT, Height Start Date: 02/08/22 Stop Date: 02/03/23 Status: Orderedlidocaine 5% topical ointment See Instructions, Topically 3 times a day for pain. Citizen Of [place] label please., # 50 Gm, 0 Refills, [...] Replace Required Details, Route to Pharmacy Electronically, [facility], 156, cm, 03/27/22 15:07:00 EDT,... Start Date: 04/15/22 Status: OrderedMetFORMIN (Eqv-Glucophage XR) 500 mg oral tablet, extended release See Instructions, AALIYAH 2 TABLETAS POR LA BOCA DOS VECES AL BELIA., # 120 tablet, 5 Refills, Maintenance, 08/28/22 11:41:00 EST, [facility], 156, cm, 04/15/22 17:44:00 [...] kit, 0 Refills, Maintenance, 03/27/22 15:25:00 EDT, [facility]., Okay to substitutewith any gallon bowel [...] tablet = 50 mg, By Mouth, Daily, marshallese, # 90 tablet, 1 Refills, Maintenance, 10/08/19 15:32:00 EDT, Tablet, [facility] 156, cm, 07/14/19 13:44:00 EST, Height Start Date: 10/08/19 Stop Date: 04/05/20 Status: OrderedtiZANidine 2 mg oral capsule 1 capsule = 2 mg, By Mouth, 3 times a day, PRN as needed for muscle spasm, # 9 capsule, 0 Refills, Maintenance, 10/11/21 9:30:00 EDT, Capsule, [facility] Partial fill upon patient request if [...] 1 Refills, Maintenance, 04/15/22 18:32:00 EDT, Tablet, [facility] Citizen Of [place] Label, 156, cm, 04/15/22 17:44:00 EDT, Height Start Date: 04/15/22 Status: Ordered Problem List Condition Confirmation Course Effective Dates Status Health I nformant Status Diabetes mellitus Confirmed Active Diastolic dysfunction Confirmed Active HLD (hyperlipidemia) Confirmed Active HTN (hypertension) Confirmed Active Hypothyroidism Confirmed Active Obese class II Confirmed Active Obesity Confirmed Active *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
--- OUTSIDE RECORDS SUMMARY | 2022-09-13 13:10 | XMS_ITS | Continuity of Care Document ---
:1960 Author Organization [facility] Address [address] [place] [phone]- Care Team Providers Name Role Phone Roberto Medina DO Primary Care Physician [facility]counter [facility] Date(s): 03/19/21 - 04/18/21 [facility] [address] [place] [id number] Attending Physician: Vineet Alexis Admitting Physician: AdmVineet mendes Referring Physician: AdmtrVineet Allergies, Adverse Reactions, Alerts Substance Reaction Severity Status penicillin Active Child ASA Active Immunizations Given and Recorded Vaccine Date Status Refusal Reason SARS-CoV-2 (COVID-19) mRNA-1273 vaccine 12/07/20 Recorded SARS-CoV-2 (COVID-19) mRNA-1273 vaccine 11/09/20 Recorded pneumococcal 23-valent vaccine 05/21/19 Given influenza virus vaccine, inactivated 05/21/19 Given influenza virus vaccine, inactivated 06/15/18 Given influenza virus vaccine, inactivated 06/13/16 Given tetanus/diphtheria/pertussis, acel(Tdap) 06/13/16 Given Medications albuterol CFC free 90 mcg/inh inhalation aerosol 2, puffs, Inhalation, 4 times a day, PRN, Somali, # 3 each, Refills 1, Tot. Refills 1, Maintenance,10/08/19 15:32:00 EDT, Route to Pharmacy Electronically, [id number], [facility], cm, 07/14/19 13:44:00... Start Date: 10/08/19 [...] 1 Refills, Maintenance, 11/18/19 15:46:00EDT, Tablet, [facility] 156, cm, 07/14/19 13:44:00 EST, Height [...] mg, By Mouth, 2 times a day, central african. Pt allergic to cox1 inhib, cox2 trial provided, # 20 capsule, 1 Refills, Maintenance, 02/01/21 15:46:00 EDT, Capsule, [facility] 156, cm, 02/01/21 15:03:00 EDT, Height Start Date: 02/01/21 Stop Date: 02/21/21 Status: Ordereddiclofenac 1% topical gel See Instructions, APLICAR A LA PIEL AL AREA AFECTADA 1-2 GRAMOS CUATRO VECES AL BELIA PARA DOLOR, # 100 Gm, 1 Refills, Maintenance, [facility], 25, APLICAR A LA PIEL AL AREA AFECTADA 1-2 GRAMOSCUATRO VECES AL BELIA PARA DOLOR, 156, cm, 02/23/20... Start Date: 01/04/21 Status: OrderedFreestyle Lite Lancets See Instructions, # [...] Topically 3 times a day for pain. Somali label please., # 50 Gm, 0 Refills, Maintenance, 02/01/21 15:46:00 EDT, [facility]., Partial fill upon patient request if the prescription is for a schedule II opioid drug., To... Start Date: 02/01/21 Status: Orderedlisinopril 20 mg oral tablet See Instructions, AALIYAH 1 TABLETA POR LA BOCA CADA BELIA, # 30 tablet, Refills 5, Maintenance, Instructions Replace Required Details, Route to Pharmacy Electronically, [facility], 156, cm, 03/05/21 8:16:00 EDT, Height Start Date: 03/08/21 Status: OrderedmetFORMIN 500 mg oral tablet, extended release 2 tablet = 1,000 mg, By Mouth, 2 times a day, # 120 tablet, 5 Refills, Maintenance, 03/06/21 9:03:00EDT, [facility]., 156, cm, 03/05/21 8:16:00 EDT, Height [...] tablet = 50 mg, By Mouth, Daily, central african, # 90 tablet, 1 Refills, Maintenance, 10/08/19 15:32:00 EDT, Tablet, [facility], 156, cm, 07/14/19 13:44:00 EST, Height [...] 1 Refills, Maintenance, 12/05/20 11:43:00 EDT, Tablet, [facility], Somali Label, 156, cm, 02/23/20 11:34:00 EDT, Height Start Date: 12/05/20 Status: Ordered Problem List Condition Effective Dates Status Health Status Informant Diabetes mellitus(Confirmed) Active Diastolic dysfunction(Confirmed) Active HLD (hyperlipidemia)(Confirmed) Active HTN (hypertension)(Confirmed) Active Hypothyroidism(Confirmed) Active Obesity(Confirmed) Active *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
--- OUTSIDE RECORDS SUMMARY | 2022-09-13 13:10 | XMS_ITS | Continuity of Care Document ---
:1960 Author Organization [facility] Address [address] [place] [address]- Care Team Providers Name Role Phone Roberto Medina DO Primary Care Physician Encounter [facility] Date(s): 06/11/21 - 07/15/21 [facility] [address] [place] [id number] Attending Physician: Zeke Diaz MD [...] puffs, Inhalation, 4 times a day, PRN, Colombian, # 3 each, Refills 1, Tot. Refills 1, Maintenance,10/08/19 15:32:00 EDT, Route to Pharmacy Electronically, [id number], [facility] 156, cm, 07/14/19 13:44:00... Start Date: 10/08/19 [...] 11 Refills, Maintenance, 06/03/21 13:50:00 EST, Tablet, [facility], 156, cm, 03/05/21 8:16:00 EDT, Height Start [...] mg, By Mouth, 2 times a day, divehi. Pt allergic to cox1 inhib, cox2 trial provided, # 20 capsule, 1 Refills, Maintenance, 02/01/21 15:46:00 EDT, Capsule, [facility] 156, cm, 02/01/21 15:03:00 EDT, Height Start Date: 02/01/21 Stop Date: 02/21/21 Status: Ordereddiclofenac 1% topical gel See Instructions, APLICAR A LA PIEL AL AREA AFECTADA 1-2 GRAMOS CUATRO VECES AL BELIA PARA DOLOR, # 100 Gm, 1 Refills, 06/11/21 16:19:00 EST, [facility] 25, APLICAR A LA PIEL AL [...] 4 Refills, Maintenance, 12/08/20 8:45:00 EDT, Tablet, [facility] 156, cm, 02/23/20 11:34:00 EDT, Height Start Date: 12/08/20 Stop Date: 03/03/22 Status: Orderedlidocaine 5% topical ointment See Instructions, Topically 3 times a day for pain. Colombian label please., # 50 Gm, 0 Refills, Maintenance, 02/01/21 15:46:00 EDT, [facility], Partial fill upon patient request if the prescription is for a schedule II opioid drug., To... Start Date: 02/01/21 Status: Orderedlisinopril 20 mg oral tablet See Instructions, AALIYAH 1 TABLETA POR LA BOCA CADA BELIA, # 30 tablet, Refills 5, Maintenance, Instructions Replace Required Details, Route to Pharmacy Electronically, [facility], 156, cm, 03/05/21 8:16:00 EDT, Height Start Date: 03/08/21 Status: OrderedmetFORMIN 500 mg oral tablet, extended release 2 tablet = 1,000 mg, By Mouth, 2 times a day, # 120 tablet, 5 Refills, Maintenance, 03/06/21 9:03:00EDT, [facility], 156, cm, 03/05/21 8:16:00 EDT, Height Start [...] tablet = 50 mg, By Mouth, Daily, divehi, # 90 tablet, 1 Refills, Maintenance, 10/08/19 15:32:00 EDT, Tablet, 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
--- OUTSIDE RECORDS SUMMARY | 2022-09-13 13:10 | XMS_ITS | Continuity of Care Document ---
:1960 Author Organization [facility] Address [address] [place] [address]- Care Team Providers Name Role Phone Roberto Medina DO Primary Care Physician Encounter [facility] [place] Date(s): 03/28/21 - 04/27/[address] [address] Attending Physician: AdmVineet mendes Admitting Physician: AdmtrVineet [...] Maintenance,10/08/19 15:32:00 EDT, Route to Pharmacy Electronically, [id number], [facility], 156, cm, 07/14/19 13:44:00... [...] tablet, 1 Refills, Maintenance, 11/18/19 15:46:00EDT, Tablet, [facility] 156, cm, 07/14/19 13:44:00 EST, Height [...] mg, By Mouth, 2 times a day, mongolian. Pt allergic to cox1 inhib, cox2 trial provided, # 20 capsule, 1 Refills, Maintenance, 02/01/21 15:46:00 EDT, Capsule, [facility]., 156, cm, 02/01/21 15:03:00 EDT, Height Start Date: 02/01/21 Stop Date: 02/21/21 Status: Ordereddiclofenac 1% topical gel See Instructions, APLICAR A LA PIEL AL AREA AFECTADA 1-2 GRAMOS CUATRO VECES AL BELIA PARA DOLOR, # 100 Gm, 1 Refills, Maintenance, [facility], 25, APLICAR A LA PIEL AL [...] Gm, 0 Refills, Maintenance, 02/01/21 15:46:00 EDT, [facility]., Partial fill upon patient request if the prescription is for a schedule II opioid drug., To... Start Date: 02/01/21 Status: Orderedlisinopril 20 mg oral tablet See Instructions, AALIYAH 1 TABLETA POR LA BOCA CADA BELIA, # 30 tablet, Refills 5, Maintenance, Instructions Replace Required Details, Route to Pharmacy Electronically, [facility], 156, cm, 03/05/21 8:16:00 EDT, Height Start Date: 03/08/21 Status: OrderedmetFORMIN 500 mg oral tablet, extended release 2 tablet = 1,000 mg, By Mouth, 2 times a day, # 120 tablet, 5 Refills, Maintenance, 03/06/21 9:03:00EDT, [facility] 156, cm, 03/05/21 8:16:00 EDT, Height [...] tablet = 50 mg, By Mouth, Daily, mongolian, # 90 tablet, 1 Refills, Maintenance, 10/08/19 15:32:00 EDT, Tablet, [facility], 156, cm, 07/14/19 13:44:00 EST, Height [...] 12/05/20 11:43:00 EDT, Tablet, [facility] Nepalese Label, 156, cm, 02/23/20 11:34:00 EDT, Height Start Date: 12/05/20 Status: Ordered Problem List Condition Effective Dates Status Health Status Informant Diabetes mellitus(Confirmed) Active Diastolic dysfunction(Confirmed) Active HLD (hyperlipidemia)(Confirmed) Active HTN (hypertension)(Confirmed) Active Hypothyroidism(Confirmed) Active Obesity(Confirmed) Active *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
--- OUTSIDE RECORDS SUMMARY | 2022-09-13 13:10 | XMS_ITS | Continuity of Care Document ---
:1960 Author Organization [facility] Address [address] [place] [address]- Care Team Providers Name Role Phone Jonathan Bermudez MD Primary Care Physician Encounter [facility] [place] Date(s): 07/30/19 - 10/17/19 [place] [address]- [facility] Discharge Disposition: A-D/C Home Attending Physician: Igor CUBA, Elizondo T Admitting Physician: Not on Staff, Admitting MD Referring Physician: Jonathan Bermudez MD Allergies, Adverse Reactions, Alerts Substance Reaction [...] puffs, Inhalation, 4 times a day, PRN, Sao [place]omean, # 3 each, Refills 1, Tot. Refills 1, Maintenance,10/08/19 15:32:00 EDT, Route to Pharmacy Electronically, [id number], [facility], cm, 07/14/19 13:44:00... Start Date: [...] tablet, 1 Refills, Maintenance, 10/08/19 15:32:00EDT, Tablet, [facility], 156, cm, 07/14/19 13:44:00 EST, Height [...] 1 Refills, Maintenance, 10/08/19 15:32:00 EDT, Tablet, [facility], 156, cm, 07/14/19 13:44:00 EST, Height Start Date: 10/08/19 Stop Date: 04/05/20 Status: Orderedlisinopril 10 mg oral tablet 10 mg, By Mouth, Daily, # 90 each, Refills 1, Tot. Refills 1, Maintenance, 10/08/19 15:32:00 EDT, Route to Pharmacy Electronically, [facility], 156, cm, 07/14/19 13:44:00 EST, Height Start Date: 10/08/19 Stop Date: 04/05/20 Status: OrderedmetFORMIN 500 mg oral tablet, extended release 2 tablet = 1,000 mg, By Mouth, 2 times a day, # 120 tablet, 11 Refills, Maintenance, 10/08/19 15:32:00 EDT, [facility], 156, cm, 07/14/19 13:44:00 EST, Height [...] By Mouth, Daily, yakut, # 90 tablet, 1 Refills, Maintenance, 10/08/19 15:32:00 EDT, Tablet, [facility], 156, cm, 07/14/19 13:44:00 EST, Height [...] Mouth, Every 6 hours, PRN for pain, Sao [place]omean label, # 100 tablet, 1 Refills, Maintenance, [...]
--- OUTSIDE RECORDS SUMMARY | 2022-09-13 13:10 | XMS_ITS | Continuity of Care Document ---
:1960 Author Organization [facility] Address [address] [place] [address]- Care Team Providers Name Role Phone Roberto Medina DO Primary Care Physician [facility]counter [facility] Date(s): 08/25/20 - 11/18/[address] [address] Attending Physician: Stan Sherman Admitting Physician: Stan Sherman Referring Physician: Stan Sherman Allergies, Adverse Reactions, Alerts Substance Reaction Severity [...] puffs, Inhalation, 4 times a day, PRN, Filipino, # 3 each, Refills 1, Tot. Refills 1, Maintenance,10/08/19 15:32:00 EDT, Route to Pharmacy Electronically, [id number], [facility], 156, cm, [...] tablet, 1 Refills, Maintenance, 11/18/19 15:46:00EDT, Tablet, [facility] 156, cm, 07/14/19 13:44:00 EST, Height [...] Topically, 4 times a day, for pain. Filipino label please. home delivery please, # 100Gm, 1 Refills, Maintenance, 09/04/20 14:48:00 EST, Gel, [facility]., Filipino label, 156, cm, 02/23/20 11:34:00 EDT, Height [...] 1 Refills, Maintenance, 11/18/19 15:46:00 EDT, Tablet, [facility], 156, cm, 07/14/19 13:44:00 EST, Height Start Date: 11/18/19 Stop Date: 05/16/20 Status: Orderedlisinopril 20 mg oral tablet 20 mg, 1, tablet, By Mouth, Daily, australian label please, # 90 tablet, Refills 1, Tot. Refills 1, Maintenance, 06/21/20 11:14:00 EST, Route to Pharmacy Electronically, [facility], Partial fill upon patient request, 156, cm, 02/23/20 11:... Start Date: 06/21/20 Stop Date: 12/18/20 Status: OrderedmetFORMIN 500 mg oral tablet, extended release 2 tablet = 1,000 mg, By Mouth, 2 times a day, # 120 tablet, 5 Refills, Maintenance, 06/06/20 19:38:00 EST, [facility], 156, cm, 02/23/20 11:34:00 EDT, Height Start Date: 06/06/20 Status: Orderednicotine 2 mg oral transmucosal lozenge 1 lozenge = 2 mg, By Mouth, Every 2 hours, # 81 lozenge, 0 Refills, Maintenance, 05/21/19 8:29:57 EDT, 1 lozenge By Mouth Every 2 hours Start Date: 05/21/19 Status: OrderedsitaGLIPtin 50 mg oral tablet 1 tablet = 50 mg, By Mouth, Daily, australian, # 90 tablet, 1 Refills, Maintenance, 10/08/19 15:32:00 EDT, Tablet, [facility], cm, 07/14/19 13:44:00 [...] 0 Refills, Maintenance, 09/04/20 14:48:00 EST, Tablet, [facility] Filipino Label, 156, cm, 02/23/20 11:34:00 EDT, Height Start Date: 09/04/20 Status: Ordered Problem List Condition Effective Dates Status Health Status Informant Diabetes mellitus(Confirmed) Active Diastolic dysfunction(Confirmed) Active HLD (hyperlipidemia)(Confirmed) Active HTN (hypertension)(Confirmed) Active Hypothyroidism(Confirmed) Active Obesity(Confirmed) Active *Kourtney Pinzon, Assistant Manager Bilingual, Active ICP [phone](Confirmed) Tobacco dependence(Confirmed) Active Social History Social History Type Response Smoking Status Current every day smoker; Ty pe: Cigarettes entered on: 07/04/15 Sex Female
--- OUTSIDE RECORDS SUMMARY | 2022-09-13 13:10 | XMS_ITS | Continuity of Care Document ---
:[address] [facility] Address [address] [place] [address]- Care Team Providers Name Role Phone Roberto Medina DO Primary Care Physician Encounter [facility] Date(s): 03/24/20 - 04/23/20 [facility] [address] [place] [address]- [place] Allergies, Adverse Reactions, Alerts Substance Reaction [...] puffs, Inhalation, 4 times a day, PRN, Costa Rican, # 3 each, Refills 1, Tot. Refills 1, Maintenance,10/08/19 15:32:00 EDT, Route to Pharmacy Electronically, [id number], [facility], 156, cm, 07/14/19 13:44:00... Start Date: [...] tablet, 1 Refills, Maintenance, 11/18/19 15:46:00EDT, Tablet, [facility] 156, cm, 07/14/19 13:44:00 EST, [...] 0 Refills, Maintenance, 02/23/20 11:43:00 EDT, Gel, [facility] 156, cm, 02/23/20 11:34:00 EDT, [...] 1 Refills, Maintenance, 11/18/19 15:46:00 EDT, Tablet, [facility], 156, cm, 07/14/19 13:44:00 EST, Height Start Date: 11/18/19 Stop Date: 05/16/20 Status: Orderedlisinopril 20 mg oral tablet 20 mg, 1, tablet, By Mouth, Daily, # 90 tablet, Refills 0, Tot. Refills 0, Maintenance, 02/23/20 12:10:00 EDT, Route to Pharmacy Electronically, [facility], 156, cm, 02/23/20 11:34:00 EDT, Height Start Date: 02/23/20 Status: OrderedmetFORMIN 500 mg oral tablet, extended release 2 tablet = 1,000 mg, By Mouth, 2 times a day, # 120 tablet, 11 Refills, Maintenance, 10/08/19 15:32:00 EDT, [facility] [...] tablet = 50 mg, By Mouth, Daily, portuguese, # 90 tablet, 1 Refills, Maintenance, 10/08/19 [...] 0 Refills, Maintenance, 02/23/20 12:11:00 EDT, Tablet, [facility] 156, cm, 02/23/20 11:34:00 EDT, [...]
--- OUTSIDE RECORDS SUMMARY | 2022-09-13 13:10 | XMS_ITS | Continuity of Care Document ---
:1960 Author Organization [facility] Address [address] [place] [address]- Care Team Providers Name Role Phone Jonathan Bermudez MD Primary Care Physician [place] [facility] [place] 07/07/19 - 08/12/19 [place] [address]- [facility] Attending Physician: Phi Meadows MD Admitting Physician: Phi Meadows MD Referring Physician: Phi Meadows MD Allergies, Adverse Reactions, Alerts Substance Reaction [...] puffs, Inhalation, 4 times a day, PRN, Yi, # 1 each, Refills 2, Tot. Refills 2, Maintenance,05/21/19 8:31:13 EDT, Route to Pharmacy Electronically, [id number], [facility] Start Date: 05/21/19 Status: Orderedarm sling, [...] 03/09/19 10:49:17 EDT, Route to Pharmacy Electronically, [id number], [facility] Start Date: 03/09/19 Stop Date: 03/03/20 [...] Mouth, Every 6 hours, PRN for pain, Yi label, # 100 tablet, 1 Refills, Maintenance, [...]
--- OUTSIDE RECORDS SUMMARY | 2022-09-13 13:11 | XMS_ITS | Continuity of Care Document ---
:1960 Author Organization [facility] Address [address] [place] [id number]- Care Team Providers Name Role Phone Roberto Medina DO Primary Care Physician [facility] Date[facility]s): 08/07/21 - 09/06/21 [facility] [address] [place] [address]- Attending Physician: Vineet Alexis Admitting Physician: Vineet [...] 4 times a day, PRN, Ethiopian, # 3 each, Refills 1, Tot. Refills 1, Maintenance,10/08/19 15:32:00 EDT, Route to Pharmacy Electronically, [id number], [facility], 156, cm, 12/18/19 13:44:00... Start Date: 10/08/19 Stop Date: 04/05/20 [...] EST, Tablet, [facility] 156, cm, 03/05/21 8:16:00 EDT, Height Start [...] mg, By Mouth, 2 times a day, sierra leonean. Pt allergic to cox1 inhib, cox2 trial provided, # 20 capsule, 1 Refills, Maintenance, 02/01/21 15:46:00 EDT, Capsule, [facility] 156, cm, 02/01/21 15:03:00 EDT, Height Start Date: 02/01/21 Stop Date: 02/21/21 Status: Ordereddiclofenac 1% topical gel See Instructions, APLICAR A LA PIEL AL AREA AFECTADA 1-2 GRAMOS CUATRO VECES AL BELIA PARA DOLOR, # 100 Gm, 1 Refills, 06/11/21 16:19:00 EST, [facility] 25, APLICAR A LA [...] Maintenance, 12/08/20 8:45:00 EDT, Tablet[facility] 156, cm, 02/23/20 11:34:00 EDT, Height Start Date: 12/08/20 Stop Date: 03/03/22 Status: Orderedlidocaine 5% topical ointment See Instructions, Topically 3 times a day for pain. Ethiopian label please., # 50 Gm, 0 Refills, Maintenance, 02/01/21 15:46:00 EDT, [facility], Partial fill upon patient request if the prescription is for a schedule II opioid drug., To... Start Date: 02/01/21 Status: Orderedlisinopril 20 mg oral tablet See Instructions, AALIYAH 1 TABLETA POR LA BOCA CADA BELIA, # 30 tablet, Refills 5, Maintenance, Instructions Replace Required Details, Route to Pharmacy Electronically, [facility], 156, cm, 03/05/21 8:16:00 EDT, Height Start Date: 03/08/21 Status: OrderedmetFORMIN 500 mg oral tablet, extended release 2 tablet = 1,000 mg, By Mouth, 2 times a day, # 120 tablet, 5 Refills, Maintenance, 03/06/21 9:03:00EDT, [facility], 156, cm, 03/05/21 8:16:00 EDT, Height Start [...] tablet = 50 mg, By Mouth, Daily, sierra leonean, # 90 tablet, 1 Refills, Maintenance, 10/08/19 15:32:00 EDT, [facility]t, [facility], cm, 07/14/19 13:44:00 EST, Height [...] 1 Refills, Maintenance, 12/05/20 11:43:00 EDT, Tablet, [facility], Ethiopian Label, 156, cm, 02/23/20 11:34:00 EDT, Height Start Date: 12/05/20 Status: Ordered Problem List Condition Effective Dates Status Health Status Informant Diabetes mellitus(Confirmed) Active Diastolic dysfunction(Confirmed) Active HLD (hyperlipidemia)(Confirmed) Active HTN (hypertension)(Confirmed) Active Hypothyroidism(Confirmed) Active Obese class II(Confirmed) Active Obesity(Confirmed) Active *Kourtney Pinzno, Training Personnel Supervisor, Active ICP [phone](Confirmed) Tobacco dependence(Confirmed) Active Social History Social History Type Response Smoking Status Current every day smoker; Ty pe: Cigarettes entered on: 07/04/15 Sex Female
--- OUTSIDE RECORDS SUMMARY | 2022-09-13 13:11 | XMS_ITS | Continuity of Care Document ---
:1960 Author Organization [facility] Address [address] [place] [address]- Care Team Providers Name Role Phone Roberto Medina DO Primary Care Physician [place] [facility]20 - 04/21/20 [place] [address]- [facility] Attending Physician: AdmVineet mendes Admitting Physician: AdmtrVineet [...] puffs, Inhalation, 4 times a day, PRN, Amharic, # 3 each, Refills 1, Tot. Refills 1, Maintenance,10/08/19 15:32:00 EDT, Route to Pharmacy Electronically, [id number], [facility], 156, cm, 07/14/19 13:44:00... Start [...] tablet, 1 Refills, Maintenance, 11/18/19 15:46:00EDT, Tablet, [facility] 156, cm, 07/14/19 13:44:00 [...] 0 Refills, Maintenance, 02/23/20 11:43:00 EDT, Gel, [facility] 156, cm, 02/23/20 11:34:00 [...] 1 Refills, Maintenance, 11/18/19 15:46:00 EDT, Tablet, [facility], 156, cm, 07/14/19 13:44:00 EST, Height Start Date: 11/18/19 Stop Date: 05/16/20 Status: Orderedlisinopril 20 mg oral tablet 20 mg, 1, tablet, By Mouth, Daily, # 90 tablet, Refills 0, Tot. Refills 0, Maintenance, 02/23/20 12:10:00 EDT, Route to Pharmacy Electronically, [facility], 156, cm, 02/23/20 11:34:00 EDT, Height Start Date: 02/23/20 Status: OrderedmetFORMIN 500 mg oral tablet, extended release 2 tablet = 1,000 mg, By Mouth, 2 times a day, # 120 tablet, 11 Refills, Maintenance, 10/08/19 15:32:00 EDT, [facility], 156, cm, 07/14/19 13:44:00 EST, Height Start Date: 10/08/19 Status: Orderednicotine 2 mg oral transmucosal lozenge 1 lozenge = 2 mg, By Mouth, Every 2 hours, # 81 lozenge, 0 Refills, Maintenance, 05/21/19 8:29:57 EDT, 1 lozenge By Mouth Every 2 hours Start Date: 05/21/19 Status: OrderedsitaGLIPtin 50 mg oral tablet 1 tablet = 50 mg, By Mouth, Daily, taiwanese, # 90 tablet, 1 Refills, Maintenance, 10/08/19 15:32:00 EDT, Tablet, [facility], 156, cm, 07/14/19 13:44:00 EST, Height Start [...] 0 Refills, Maintenance, 02/23/20 12:11:00 EDT, Tablet, [facility], 156, cm, 02/23/20 11:34:00 EDT, Height Start [...]
--- OUTSIDE RECORDS SUMMARY | 2022-09-13 13:11 | XMS_ITS | Continuity of Care Document ---
:1960 Author Organization [facility] Address [address] [place] [address]- Care Team Providers Name Role Phone Roberto Medina DO Primary Care Physician [facility] Date[facility]s): 05/04/21 - 06/03/21 [facility] [address] [place], [place] [address] Allergies, Adverse Reactions, Alerts Substance Reaction Severity [...] puffs, Inhalation, 4 times a day, PRN, Egyptian, # 3 each, Refills 1, Tot. Refills 1, Maintenance,10/08/19 15:32:00 EDT, Route to Pharmacy Electronically, [id number], [facility], 156, cm, 07/14/19 13:44:00... [...] 11 Refills, Maintenance, 06/03/21 13:50:00 EST, Tablet, [facility] 156, cm, 03/05/21 8:16:00 EDT, [...] mg, By Mouth, 2 times a day, brazilian. Pt allergic to cox1 inhib, cox2 trial provided, # 20 capsule, 1 Refills, Maintenance, 02/01/21 15:46:00 EDT, Capsule, [facility]., 156, cm, 02/01/21 15:03:00 EDT, Height Start Date: 02/01/21 Stop Date: 02/21/21 Status: Ordereddiclofenac 1% topical gel See Instructions, APLICAR A LA PIEL AL AREA AFECTADA 1-2 GRAMOS CUATRO VECES AL BELIA PARA DOLOR, # 100 Gm, 1 Refills, Maintenance, [facility], 25, APLICAR A LA PIEL AL AREA [...] 4 Refills, Maintenance, 12/08/20 8:45:00 EDT, Tablet, [facility] 156, cm, 02/23/20 11:34:00 EDT, Height Start Date: 12/08/20 Stop Date: 03/03/22 Status: Orderedlidocaine 5% topical ointment See Instructions, Topically 3 times a day for pain. Egyptian label please., # 50 Gm, 0 Refills, Maintenance, 02/01/21 15:46:00 EDT, [facility]., Partial fill upon patient request if the prescription is for a schedule II opioid drug., To... Start Date: 02/01/21 Status: Orderedlisinopril 20 mg oral tablet See Instructions, AALIYAH 1 TABLETA POR LA BOCA CADA BELIA, # 30 tablet, Refills 5, Maintenance, Instructions Replace Required Details, Route to Pharmacy Electronically, [facility], 156, cm, 03/05/21 8:16:00 EDT, Height Start Date: 03/08/21 Status: OrderedmetFORMIN 500 mg oral tablet, extended release 2 tablet = 1,000 mg, By Mouth, 2 times a day, # 120 tablet, 5 Refills, Maintenance, 03/06/21 9:03:00EDT, [facility] 156, cm, 03/05/21 8:16:00 EDT, [...] tablet = 50 mg, By Mouth, Daily, brazilian, # 90 tablet, 1 Refills, Maintenance, 10/08/19 15:32:00 EDT, Tablet, [facility] 156, cm, 07/14/19 13:44:00 EST, [...] 1 Refills, Maintenance, 12/05/20 11:43:00 EDT, Tablet, [facility], Egyptian Label, 156, cm, 02/23/20 11:34:00 EDT, Height Start Date: 12/05/20 Status: Ordered Problem List Condition Effective Dates Status Health Status Informant Diabetes mellitus(Confirmed) Active Diastolic dysfunction(Confirmed) Active HLD (hyperlipidemia)(Confirmed) Active HTN (hypertension)(Confirmed) Active Hypothyroidism(Confirmed) Active Obesity(Confirmed) Active *Kourtney Pinzon, Electronic Equipment Repairer, Active ICP [phone](Confirmed) Tobacco dependence(Confirmed) Active Social History Social History Type Response Smoking Status Current every day smoker; Ty pe: Cigarettes entered on: 07/04/15 Sex Female
--- OUTSIDE RECORDS SUMMARY | 2022-09-13 13:11 | XMS_ITS | Continuity of Care Document ---
:1960 Author Organization [facility] Address [address] [place] [address]- Care Team Providers Name Role Phone Jonathan Bermudez MD Primary Care Physician [facility] 10/12/19 - 10/22/19 [facility] [address] [place] [address]- [facility] Attending Physician: Vineet Alexis Admitting Physician: Vineet Alexis Referring Physician: AdmVineet mendes Allergies, Adverse Reactions, Alerts Substance Reaction Severity [...] puffs, Inhalation, 4 times a day, PRN, Mexican, # 3 each, Refills 1, Tot. Refills 1, Maintenance,10/08/19 15:32:00 EDT, Route to Pharmacy Electronically, [id number], [facility], cm, 07/14/19 13:44:00... Start Date: [...] tablet, 1 Refills, Maintenance, 10/08/19 15:32:00EDT, Tablet, [facility] 156, cm, 07/14/19 13:44:00 EST, Height [...] 1 Refills, Maintenance, 10/08/19 15:32:00 EDT, Tablet, [facility], 156, cm, 07/14/19 13:44:00 EST, Height Start Date: 10/08/19 Stop Date: 04/05/20 Status: Orderedlisinopril 10 mg oral tablet 10 mg, By Mouth, Daily, # 90 each, Refills 1, Tot. Refills 1, Maintenance, 10/08/19 15:32:00 EDT, Route to Pharmacy Electronically, [facility], 156, cm, 07/14/19 13:44:00 EST, Height Start Date: 10/08/19 Stop Date: 04/05/20 Status: OrderedmetFORMIN 500 mg oral tablet, extended release 2 tablet = 1,000 mg, By Mouth, 2 times a day, # 120 tablet, 11 Refills, Maintenance, 10/08/19 15:32:00 EDT, [facility], 156, cm, 07/14/19 13:44:00 EST, Height Start Date: 10/08/19 Status: Orderednicotine 2 mg oral transmucosal lozenge 1 lozenge = 2 mg, By Mouth, Every 2 hours, # 81 lozenge, 0 Refills, Maintenance, 05/21/19 8:29:57 EDT, 1 lozenge By Mouth Every 2 hours Start Date: 05/21/19 Status: OrderedsitaGLIPtin 50 mg oral tablet 1 tablet = 50 mg, By Mouth, Daily, barbadian, # 90 tablet, 1 Refills, Maintenance, 10/08/19 15:32:00 EDT, Tablet, [facility], 156, cm, 07/14/19 13:44:00 EST, Height [...] Mouth, Every 6 hours, PRN for pain, Mexican label, # 100 tablet, 1 Refills, Maintenance, [...]
--- OUTSIDE RECORDS SUMMARY | 2022-09-13 13:11 | XMS_ITS | Continuity of Care Document ---
:1960 Author Organization [facility] Address [address] [place] [address]- Care Team Providers Name Role Phone Jonathan Bermudez MD Primary Care Physician [facility] Date[facility]): 07/14/19 - 08/21/19 [facility] [address] [place] [address]- [facility] Attending Physician: Zeke Diaz MD [...] puffs, Inhalation, 4 times a day, PRN, Malay, # 1 each, Refills 2, Tot. Refills 2, Maintenance,05/21/19 8:31:13 EDT, Route to Pharmacy Electronically, [id number], [facility] Start Date: 05/21/19 Status: Orderedarm [...] 03/09/19 10:49:17 EDT, Route to Pharmacy Electronically, [id number], [facility] Start Date: 03/09/19 Stop Date: 03/03/20 Status: [...] tablet = 50 mg, By Mouth, Daily, bulgarian, # 90 tablet, 3 Refills, Maintenance, 05/21/19 [...] Mouth, Every 6 hours, PRN for pain, Malay label, # 100 tablet, 1 Refills, Maintenance, [...]
--- OUTSIDE RECORDS SUMMARY | 2022-09-13 13:11 | XMS_ITS | Continuity of Care Document ---
:1960 Author Organization [facility] Address [address] [place] [address]- Care Team Providers Name Role Phone Jonathan Bermudez MD Primary Care Physician [facility] Date[facility]s): 06/18/19 - 08/12/19 [facility] [address] [place] [address]- [facility] Attending Physician: Zeke Diaz MD Admitting Physician: [...] puffs, Inhalation, 4 times a day, PRN, Khmer, # 1 each, Refills 2, Tot. Refills 2, Maintenance,05/21/19 8:31:13 EDT, Route to Pharmacy Electronically, [id number], [facility] Start Date: 05/21/19 Status: Orderedarm sling, M75.4 [...] 03/09/19 10:49:17 EDT, Route to Pharmacy Electronically, [id number], [facility] Start Date: 03/09/19 Stop Date: 03/03/20 [...] Mouth, Every 6 hours, PRN for pain, Khmer label, # 100 tablet, 1 Refills, Maintenance, [...]
--- OUTSIDE RECORDS SUMMARY | 2022-09-13 13:11 | XMS_ITS | Continuity of Care Document ---
:1960 Author Organization [facility] Address [address] [place] [id number]- Care Team Providers Name Role Phone Roberto Medina DO Primary Care Physician [place] [facility]): 02/14/22 - 04/10/22 [facility] [address] [place] [address] Attending Physician: Not on Staff, Attending [...] puffs, Inhalation, 4 times a day, PRN, Namibian, # 3 each, Refills 1, Tot. Refills 1, Maintenance,10/08/19 15:32:00 EDT, Route to Pharmacy Electronically, [id number], [facility], 156, cm, 07/14/19 13:44:00... Start Date: [...] 11 Refills, Maintenance, 06/03/21 13:50:00 EST, Tablet, [facility]., 156, cm, 03/05/21 8:16:00 EDT, Height [...] mg, By Mouth, 2 times a day, english. Pt allergic to cox1 inhib, cox2 trial provided, # 20 capsule, 1 Refills, Maintenance, 02/01/21 15:46:00 EDT, Capsule, [facility]., 156, cm, 02/01/21 15:03:00 EDT, Height Start Date: 02/01/21 Stop Date: 02/21/21 Status: Ordereddiclofenac 1% topical gel See Instructions, APLICAR A LA PIEL AL AREA AFECTADA 1-2 GRAMOS CUATRO VECES AL BELIA PARA DOLOR, # 100 Gm, 1 Refills, 10/11/21 9:31:00 EDT, [facility] 25, APLICAR A LA PIEL AL AREA [...] 3 Refills, Maintenance, 02/08/22 19:49:00 EDT, Tablet, [facility] 156, cm, 12/31/21 13:56:00 EDT, Height Start Date: 02/08/22 Stop Date: 02/03/23 Status: Orderedlidocaine 5% topical ointment See Instructions, Topically 3 times a day for pain. Namibian label please., # 50 Gm, 0 Refills, Maintenance, 02/01/21 15:46:00 EDT, [facility]., Partial fill upon patient request if the prescription is for a schedule II opioid drug., To... Start Date: 02/01/21 Status: Orderedlisinopril 20 mg oral tablet See Instructions, AALIYAH 1 TABLETA POR LA BOCA CADA BELIA, # 30 tablet, Refills 5, Instructions ReplaceRequired Details, Route to Pharmacy Electronically, [facility], 156, cm, 10/11/21 9:38:00 EDT, Height Start Date: 10/23/21 Status: OrderedmetFORMIN 500 mg oral tablet, extended release 2 tablet = 1,000 mg, By Mouth, 2 times a day, # 120 tablet, 5 Refills, Maintenance, 11/01/21 10:04:00 EDT, [facility], 156, cm, 10/11/21 9:38:00 EDT, Height [...] kit, 0 Refills, Maintenance, 03/27/22 15:25:00 EDT, [facility]., Okay to substitutewith any gallon bowel prep., Please follow instru... Start Date: 03/27/22 Status: Orderedplastazote shoe inserts plastazote shoe inserts, See Instructions, # 2 each, Refills 0, Tot. Refills 0, Maintenance, Dx codes E11.9, E11.40 duration: lifetime, 03/05/21 12:12:00 EDT, Supply Start Date: 03/05/21 Status: OrderedsitaGLIPtin 50 mg oral tablet 1 tablet = 50 mg, By Mouth, Daily, english, # 90 tablet, 1 Refills, Maintenance, 10/08/19 15:32:00 EDT, Tablet, [facility], 156, cm, 07/14/19 13:44:00 EST, Height Start Date: 10/08/19 Stop Date: 04/05/20 Status: OrderedtiZANidine 2 mg oral capsule 1 capsule = 2 mg, By Mouth, 3 times a day, PRN as needed for muscle spasm, # 9 capsule, 0 Refills, Maintenance, 10/11/21 9:30:00 EDT, Capsule, [facility], Partial fill upon patient request if [...] 1 Refills, Maintenance, 12/05/20 11:43:00 EDT, Tablet, [facility], Namibian Label, 156, cm, 02/23/20 11:34:00 EDT, Height Start Date: 12/05/20 Status: Ordered Problem List Condition Effective Dates Status Health Status Informant Diabetes mellitus(Confirmed) Active Diastolic dysfunction(Confirmed) Active HLD (hyperlipidemia)(Confirmed) Active HTN (hypertension)(Confirmed) Active Hypothyroidism(Confirmed) Active Obese class I(Confirmed) Active Obesity(Confirmed) Active *Kourtney Pinzon, Fish Agent, Active ICP [phone](Confirmed) Tobacco dependence(Confirmed) Active Social History Social History Type Response Smoking Status Current every day smoker; Ty pe: Cigarettes entered on: 07/04/15 Sex Female Care Team PersonnelName: Roberto Medina DO Address: [address] [place] [address]
--- OUTSIDE RECORDS SUMMARY | 2022-09-13 13:11 | XMS_ITS | Continuity of Care Document ---
:1960 Author Organization [facility] Address [address] [place] [address]- Care Team Providers Name Role Phone Roberto Medina DO Primary Care Physician [place] [facility] [place] 03/16/20 - 04/21/20 [place] [address]- [facility] Attending Physician: Phi Meadows MD Admitting Physician: Phi Meadows MD Referring Physician: Roberto Medina DO Allergies, [...] puffs, Inhalation, 4 times a day, PRN, Latvian, # 3 each, Refills 1, Tot. Refills 1, Maintenance,10/08/19 15:32:00 EDT, Route to Pharmacy Electronically, [id number], [facility], 156, cm, 07/14/19 13:44:00... Start Date: [...] 1 Refills, Maintenance, 11/18/19 15:46:00EDT, Tablet, [facility] 156, cm, 07/14/19 13:44:00 EST, Height Start [...] 0 Refills, Maintenance, 02/23/20 11:43:00 EDT, Gel, [facility] 156, cm, 02/23/20 11:34:00 EDT, Height Start [...] e11.9, 10/08/19 15:35:00 EDT, Compound, 156, cm, 12/18/19 13:44:00 EST, Height Start Date: 10/08/19 Status: Orderedlevothyroxine 0.05 mg oral tablet = 50 mcg, By Mouth, Daily, # 90 each, 1 Refills, Maintenance, 11/18/19 15:46:00 EDT, Tablet, [facility], 156, cm, 07/14/19 13:44:00 EST, Height Start Date: 11/18/19 Stop Date: 05/16/20 Status: Orderedlisinopril 20 mg oral tablet 20 mg, 1, tablet, By Mouth, Daily, # 90 tablet, Refills 0, Tot. Refills 0, Maintenance, 02/23/20 12:10:00 EDT, Route to Pharmacy Electronically, [facility], 156, cm, 02/23/20 11:34:00 EDT, Height Start Date: 02/23/20 Status: OrderedmetFORMIN 500 mg oral tablet, extended release 2 tablet = 1,000 mg, By Mouth, 2 times a day, # 120 tablet, 11 Refills, Maintenance, 10/08/19 15:32:00 EDT, [facility], 156, cm, 07/14/19 13:44:00 EST, Height Start Date: 10/08/19 Status: Orderednicotine 2 mg oral transmucosal lozenge 1 lozenge = 2 mg, By Mouth, Every 2 hours, # 81 lozenge, 0 Refills, Maintenance, 05/21/19 8:29:57 EDT, 1 lozenge By Mouth Every 2 hours Start Date: 05/21/19 Status: OrderedsitaGLIPtin 50 mg oral tablet 1 tablet = 50 mg, By Mouth, Daily, citizen of [place], # 90 tablet, 1 Refills, Maintenance, 10/08/19 15:32:00 EDT, Tablet, [facility], 156, cm, 07/14/19 13:44:00 EST, [...] 0 Refills, Maintenance, 02/23/20 12:11:00 EDT, Tablet, [facility], 156, cm, 02/23/20 11:34:00 EDT, Height [...]
--- OUTSIDE RECORDS SUMMARY | 2022-09-13 13:11 | XMS_ITS | Continuity of Care Document ---
:1960 Author Organization [facility] Address [address] [place] [address]- Care Team Providers Name Role Phone Roberto Medina DO Primary Care Physician [facility] 10[facility]21 - 01/02/22 [facility] [address] [place] [id number] Attending Physician: Not on Staff, Attending MD [...] 4 times a day, PRN, Persian, # 3 each, Refills 1, Tot. Refills 1, Maintenance,10/08/19 15:32:00 EDT, Route to Pharmacy Electronically, [id number], [facility], 156, cm, 07/14/19 13:44:00... Start [...] 11 Refills, Maintenance, 06/03/21 13:50:00 EST, Tablet, [facility] 156, cm, 03/05/21 8:16:00 EDT, [...] mg, By Mouth, 2 times a day, solomon islander. Pt allergic to cox1 inhib, cox2 trial provided, # 20 capsule, 1 Refills, Maintenance, 02/01/21 15:46:00 EDT, Capsule, [facility]., 156, cm, 02/01/21 15:03:00 EDT, Height Start Date: 02/01/21 Stop Date: 02/21/21 Status: Ordereddiclofenac 1% topical gel See Instructions, APLICAR A LA PIEL AL AREA AFECTADA 1-2 GRAMOS CUATRO VECES AL BELIA PARA DOLOR, # 100 Gm, 1 Refills, 10/11/21 9:31:00 EDT, [facility]., 25, APLICAR A LA PIEL AL [...] INDICADO PARA CHEQUEAR LA AZUCAR DE LA DNAYELL CADA BELIA, 156, cm, 02/23/20 11:34:00 EDT, [...] Topically 3 times a day for pain. Persian label please., # 50 Gm, 0 Refills, Maintenance, 02/01/21 15:46:00 EDT, [facility]., Partial fill upon patient request if the prescription is for a schedule II opioid drug., To... Start Date: 02/01/21 Status: Orderedlisinopril 20 mg oral tablet See Instructions, AALIYAH 1 TABLETA POR LA BOCA CADA BELIA, # 30 tablet, Refills 5, Instructions ReplaceRequired Details, Route to Pharmacy Electronically, [facility], 156, cm, 10/11/21 9:38:00 EDT, Height Start [...] tablet = 50 mg, By Mouth, Daily, solomon islander, # 90 tablet, 1 Refills, Maintenance, 10/08/19 [...] Maintenance, 12/05/20 11:43:00 EDT, Tablet, [facility], Persian Label, 156, cm, 02/23/20 11:34:00 EDT, Height Start Date: 12/05/20 Status: Ordered Problem List Condition Effective Dates Status Health Status Informant Diabetes mellitus(Confirmed) Active Diastolic dysfunction(Confirmed) Active HLD (hyperlipidemia)(Confirmed) Active HTN (hypertension)(Confirmed) Active Hypothyroidism(Confirmed) Active Obese class II(Confirmed) Active Obesity(Confirmed) Active *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
--- OUTSIDE RECORDS SUMMARY | 2022-09-13 13:11 | XMS_ITS | Continuity of Care Document ---
:1960 Author Organization [facility] Address [address] [place] [address]- Care Team Providers Name Role Phone Roberto Medina DO Primary Care Physician Encounter [facility] Date(s): 07/02/21 - 08/01/21 [facility] [address] [place] [address]- Allergies, Adverse Reactions, Alerts Substance Reaction Severity [...] puffs, Inhalation, 4 times a day, PRN, Kazakh, # 3 each, Refills 1, Tot. Refills 1, Maintenance,10/08/19 15:32:00 EDT, Route to Pharmacy Electronically, [id number], [facility], 156, cm, 07/14/19 13:44:00... Start [...] 11 Refills, Maintenance, 06/03/21 13:50:00 EST, Tablet, [facility]., 156, cm, 03/05/21 8:16:00 EDT, Height [...] mg, By Mouth, 2 times a day, german. Pt allergic to cox1 inhib, cox2 trial provided, # 20 capsule, 1 Refills, Maintenance, 02/01/21 15:46:00 EDT, Capsule, [facility]., 156, cm, 02/01/21 15:03:00 EDT, Height Start Date: 02/01/21 Stop Date: 02/21/21 Status: Ordereddiclofenac 1% topical gel See Instructions, APLICAR A LA PIEL AL AREA AFECTADA 1-2 GRAMOS CUATRO VECES AL BELIA PARA DOLOR, # 100 Gm, 1 Refills, 06/11/21 16:19:00 EST, [facility]., 25, APLICAR A LA PIEL [...] Topically 3 times a day for pain. Kazakh label please., # 50 Gm, 0 Refills, Maintenance, 02/01/21 15:46:00 EDT, [facility]., Partial fill upon patient request if the prescription is for a schedule II opioid drug., To... Start Date: 02/01/21 Status: Orderedlisinopril 20 mg oral tablet See Instructions, AALIYAH 1 TABLETA POR LA BOCA CADA BELIA, # 30 tablet, Refills 5, Maintenance, Instructions Replace Required Details, Route to Pharmacy Electronically, [facility], 156, cm, 03/05/21 8:16:00 EDT, Height Start Date: 03/08/21 Status: OrderedmetFORMIN 500 mg oral tablet, extended release 2 tablet = 1,000 mg, By Mouth, 2 times a day, # 120 tablet, 5 Refills, Maintenance, 03/06/21 9:03:00EDT, [facility], 156, cm, 03/05/21 8:16:00 EDT, Height Start [...] tablet = 50 mg, By Mouth, Daily, german, # 90 tablet, 1 Refills, Maintenance, 10/08/19 15:32:00 EDT, Tablet, [facility], 156, cm, 07/14/19 13:44:00 EST, Height [...] 1 Refills, Maintenance, 12/05/20 11:43:00 EDT, Tablet, [facility], Kazakh Label, 156, cm, 02/23/20 11:34:00 EDT, Height Start Date: 12/05/20 Status: Ordered Problem List Condition Effective Dates Status Health Status Informant Diabetes mellitus(Confirmed) Active Diastolic dysfunction(Confirmed) Active HLD (hyperlipidemia)(Confirmed) Active HTN (hypertension)(Confirmed) Active Hypothyroidism(Confirmed) Active Obese class II(Confirmed) Active Obesity(Confirmed) Active *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
--- OUTSIDE RECORDS SUMMARY | 2022-09-13 13:11 | XMS_ITS | Continuity of Care Document ---
:1960 Author Organization [facility] Address [address] [place] [address]- Care Team Providers Name Role Phone Roberto Medina DO Primary Care Physician Encounter [facility] Date(s): 04/16/22 - 06/16/22 [facility] [address], [place] [address] Attending Physician: Not on Staff, Attending [...] puffs, Inhalation, 4 times a day, PRN, Pakistani, # 3 each, Refills 1, Tot. Refills 1, Maintenance,10/08/19 15:32:00 EDT, Route to Pharmacy Electronically, [id number], [facility], 156, cm, 07/14/19 13:44:00... Start Date: [...] 11 Refills, Maintenance, 06/03/21 13:50:00 EST, Tablet, [facility] 156, cm, 03/05/21 8:16:00 EDT, [...] mg, By Mouth, 2 times a day, portuguese. Pt allergic to cox1 inhib, cox2 trial provided, # 20 capsule, 1 Refills, Maintenance, 02/01/21 15:46:00 EDT, Capsule, [facility]., 156, cm, 02/01/21 15:03:00 EDT, Height Start Date: 02/01/21 Stop Date: 02/21/21 Status: Ordereddiclofenac 1% topical gel See Instructions, APLICAR A LA PIEL AL AREA AFECTADA 1-2 GRAMOS CUATRO VECES AL BELIA PARA DOLOR, # 100 Gm, 1 Refills, 10/11/21 9:31:00 EDT, [facility]., 25, APLICAR A LA PIEL AL AREA AFECTADA 1-2 GRAMOS CUATRO VECES AL BELIA PARA DOLOR, 15... Start Date: 10/11/21 Status: JnijgffW-F-Ihn 4.9% oral suspension See Instructions, to be [...] 3 Refills, Maintenance, 02/08/22 19:49:00 EDT, Tablet, [facility], 156, cm, 12/31/21 13:56:00 EDT, Height Start Date: 02/08/22 Stop Date: 02/03/23 Status: Orderedlidocaine 5% topical ointment See Instructions, Topically 3 times a day for pain. Pakistani label please., # 50 Gm, 0 Refills, Maintenance, 02/01/21 15:46:00 EDT, [facility], Partial fill upon patient request if the prescription is for a schedule II opioid drug., To... Start Date: 02/01/21 Status: Orderedlisinopril 20 mg oral tablet See Instructions, AALIYAH 1 TABLETA POR LA BOCA CADA BELIA, # 30 tablet, Refills 5, Tot. Refills 5, 04/15/22 10:21:00 EDT, Instructions Replace Required Details, Route to Pharmacy Electronically, [facility], 156, cm, 03/27/22 15:07:00 EDT,... Start Date: 04/15/22 Status: OrderedmetFORMIN 500 mg oral tablet, extended release 2 tablet = 1,000 mg, By Mouth, 2 times a day, # 120 tablet, 5 Refills, Maintenance, 11/01/21 10:04:00 EDT, [facility], 156, cm, 10/11/21 9:38:00 EDT, Height [...] kit, 0 Refills, Maintenance, 03/27/22 15:25:00 EDT, [facility]., Okay to substitutewith any gallon bowel [...] 1 Refills, Maintenance, 10/08/19 15:32:00 EDT, Tablet, [facility] 156, cm, 07/14/19 13:44:00 EST, Height Start Date: 10/08/19 Stop Date: 04/05/20 Status: OrderedtiZANidine 2 mg oral capsule 1 capsule = 2 mg, By Mouth, 3 times a day, PRN as needed for muscle spasm, # 9 capsule, 0 Refills, Maintenance, 10/11/21 9:30:00 EDT, Capsule, [facility], Partial fill upon patient request if [...] 04/15/22 18:32:00 EDT, Tablet, [facility], Pakistani Label, 156, cm, 04/15/22 17:44:00 EDT, Height Start Date: 04/15/22 Status: Ordered Problem List Condition Confirmation Course Effective Dates Status Health I nformant Status Diabetes mellitus Confirmed Active Diastolic dysfunction Confirmed Active HLD (hyperlipidemia) Confirmed Active HTN (hypertension) Confirmed Active Hypothyroidism Confirmed Active Obese class II Confirmed Active Obesity Confirmed Active *Kourtney Pinzon, Confirmed 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
== END 2022-09-13 13:24 | disposition home or self-care (01) ==
PROVIDERS: Emergency Provider Emergency Medicine
DX: L84 Corns and callosities (principal)
CPT/HCPCS: 99282; 99283